=== PATIENT | female | born 1935 | race Caucasian/White ===

== ENCOUNTER 2017-01-17 09:27 | Emergency (ER) | payer MEDICARE ==
[2017-01-17] MEDS ORDERED: SODIUM CHLORIDE 0.9% 1,000 ML IV STA (10:05)
[2017-01-17] MEDS ORDERED: METOCLOPRAMIDE 5 MG/ML 2 ML VIAL IVP STA (10:14)
--- NOTE | 2017-01-17 10:17 | ED ---
General Adult HPI - General Chief complaint: Nausea/Vomiting/Diarrhea Stated complaint: Nausea/Vomiting Time Seen by Provider: 01/17/17 10:02 Source: EMS, RN notes reviewed Mode of arrival: EMS Limitations: no limitations - History of Present Illness Initial comments: Patient is 81-year-old female presents emergency room for evaluation. Patient states This morning she felt very dizzy. Patient states she felt like she is having a panic attack and began feeling very nauseous. Patient states she still having slight dizziness. Patient states she vomited when she got here. Patient states it and a little bit of abdominal discomfort from the nauseated feeling. Patient denies headache or changes in vision. Patient denies paresthesias. Patient denies diarrhea or constipation. Patient denies new foods. Patient denies recent travel outside the country. Patient denies chest pain or shortness of breath. Patient denies any cardiac history. - Related Data Home Medications Medication Instructions Recorded Confirmed Cholecalciferol [Vitamin D3] 1,000 unit PO DAILY 01/17/17 01/17/17 Ezetimibe [Zetia] 10 mg PO DAILY 01/17/17 01/17/17 Fenofibrate [Lofibra] 54 mg PO DAILY 01/17/17 01/17/17 Hydrochlorothiazide 25 mg PO DAILY 01/17/17 01/17/17 Levothyroxine Sodium [Synthroid] 112 mcg PO DAILY 01/17/17 01/17/17 Oxybutynin Xl [Ditropan Xl] 5 mg PO DAILY 01/17/17 01/17/17 Previous Rx's Medication Instructions Recorded LORazepam [Ativan] 1 mg PO BID PRN #8 tab 01/17/17 Ondansetron Odt [Zofran Odt] 4 mg PO Q8HR PRN #12 tab 01/17/17 Allergies Allergy/AdvReac Type Severity Reaction Status Date / Time midazolam [From Versed] Allergy Vomiting Verified 01/17/17 09:54 cortisone AdvReac Vomiting Verified 01/17/17 09:54 meperidine [From Demerol] AdvReac Vomiting Verified 01/17/17 09:54 Review of Systems ROS Statement: Those systems with pertinent positive or pertinent negative responses have been documented in the HPI. ROS Other: All systems not noted in ROS Statement are negative. Past Medical History Past Medical History: Thyroid Disorder History of Any Multi-Drug Resistant Organisms: None Reported Additional Past Surgical History / Comment(s): eye surgery Past Psychological History: No Psychological Hx Reported Smoking Status: Never smoker Past Alcohol Use History: None Reported Past Drug Use History: None Reported General Exam - General Exam Comments Initial Comments: Laying in exam room, no acute distress. Limitations: no limitations General appearance: alert, in no apparent distress Head exam: Present: atraumatic, normocephalic, normal inspection Eye exam: Present: normal appearance, PERRL, EOMI Pupils: Present: normal accommodation ENT exam: Present: normal exam, normal oropharynx, mucous membranes moist, TM's normal bilaterally, normal external ear exam Neck exam: Present: normal inspection, full ROM. Absent: tenderness, lymphadenopathy Respiratory exam: Present: normal lung sounds bilaterally. Absent: respiratory distress Cardiovascular Exam: Present: regular rate, normal rhythm, normal heart sounds GI/Abdominal exam: Present: soft, normal bowel sounds. Absent: distended, tenderness, guarding, rebound, rigid Extremities exam: Present: normal inspection Back exam: Present: normal inspection Neurological exam: Present: alert, oriented X3, CN II-XII intact, normal gait Psychiatric exam: Present: normal affect, normal mood Skin exam: Present: warm, dry, intact, normal color. Absent: rash Course Vital Signs 01/17/17 01/17/17 01/17/17 09:41 09:47 11:11 Temperature 98.0 F 97.6 F Pulse Rate 64 62 57 L Respiratory 18 16 20 Rate Blood Pressure 161/74 161/74 145/69 O2 Sat by Pulse 97 91 L 98 Oximetry 01/17/17 01/17/17 01/17/17 11:52 12:14 13:20 Temperature 97.0 F L 96.9 F L Pulse Rate 56 L 64 65 Respiratory 16 16 16 Rate Blood Pressure 169/78 168/74 150/70 O2 Sat by Pulse 97 97 96 Oximetry EKG Findings - EKG Comments: EKG Findings:: Normal sinus rhythm, ventricular rate 63 bpm, TN interval 150 ms , QRS duration 78 ms, QT/QTc 428/437 ms Medical Decision Making - Medical Decision Making Patient is 81-year-old female presents to the emergency room for evaluation of dizziness and nausea. Patient states symptoms have improved since being here. Labs reviewed. No concerning labs noted. patient's episode this morning was likely from anxiety. Offered send patient home with Ativan and Berkley. Case discussed Dr. Correa. Patient states she would like to be discharged home. Advised patient to follow-up with her primary care provider. Return parameters discussed. - Lab Data Result diagrams: 01/17/17 09:45 01/17/17 09:45 Lab Results 01/17/17 01/17/17 01/17/17 Range/Units 09:45 09:45 09:45 WBC 4.8 (3.8-10.6) k/uL RBC 4.95 (3.80-5.40) m/uL Hgb 15.0 (11.4-16.0) gm/dL Hct 46.6 H (34.0-46.0) % MCV 94.1 (80.0-100.0) fL MCH 30.4 (25.0-35.0) pg MCHC 32.3 (31.0-37.0) g/dL RDW 13.6 (11.5-15.5) % Plt Count 234 (150-450) k/uL Neutrophils % 52 % Lymphocytes % 37 % Monocytes % 6 % Eosinophils % 3 % Basophils % 1 % Neutrophils # 2.5 (1.3-7.7) k/uL Lymphocytes # 1.8 (1.0-4.8) k/uL Monocytes # 0.3 (0-1.0) k/uL Eosinophils # 0.2 (0-0.7) k/uL Basophils # 0.0 (0-0.2) k/uL PT (9.0-12.0) sec INR (<1.1) APTT (22.0-30.0) sec Sodium 142 (137-145) mmol/L Potassium 3.9 (3.5-5.1) mmol/L Chloride 106 (98-107) mmol/L Carbon Dioxide 26 (22-30) mmol/L Anion Gap 10 mmol/L BUN 22 H (7-17) mg/dL Creatinine 0.79 (0.52-1.04) mg/dL Est GFR (MDRD) Af Amer >60 (>60 ml/min/1.73 sqM) Est GFR (MDRD) Non-Af >60 (>60 ml/min/1.73 sqM) Glucose 118 H (74-99) mg/dL Calcium 9.4 (8.4-10.2) mg/dL Magnesium 1.9 (1.6-2.3) mg/dL Total Bilirubin 0.8 (0.2-1.3) mg/dL AST 32 (14-36) U/L ALT 36 (9-52) U/L Alkaline Phosphatase 51 (38-126) U/L Total Creatine Kinase 158 H (30-135) U/L CK-MB (CK-2) 3.2 H* (0.0-2.4) ng/mL CK-MB (CK-2) Rel Index 2.0 Troponin I <0.012 (0.000-0.034) ng/mL Total Protein 7.1 (6.3-8.2) g/dL Albumin 4.3 (3.5-5.0) g/dL Amylase 63 (30-110) U/L Lipase 126 (23-300) U/L Urine Color Urine Appearance (Clear) Urine pH (5.0-8.0) Ur Specific [place] (1.001-1.035) Urine Protein (Negative) Urine Glucose (UA) (Negative) Urine Ketones (Negative) Urine Blood (Negative) Urine Nitrite (Negative) Urine Bilirubin (Negative) Urine Urobilinogen (<2.0) mg/dL Ur Leukocyte Esterase (Negative) Urine RBC (0-5) /hpf Urine WBC (0-5) /hpf Ur Squamous Epith Cells (0-4) /hpf Hyaline Casts (0-2) /lpf Urine Mucus (None) /hpf 01/17/17 01/17/17 Range/Units 09:45 12:10 WBC (3.8-10.6) k/uL RBC (3.80-5.40) m/uL Hgb (11.4-16.0) gm/dL Hct (34.0-46.0) % MCV (80.0-100.0) fL MCH (25.0-35.0) pg MCHC (31.0-37.0) g/dL RDW (11.5-15.5) % Plt Count (150-450) k/uL Neutrophils % % Lymphocytes % % Monocytes % % Eosinophils % % Basophils % % Neutrophils # (1.3-7.7) k/uL Lymphocytes # (1.0-4.8) k/uL Monocytes # (0-1.0) k/uL Eosinophils # (0-0.7) k/uL Basophils # (0-0.2) k/uL PT 10.5 (9.0-12.0) sec INR 1.0 (<1.1) APTT 19.1 L (22.0-30.0) sec Sodium (137-145) mmol/L Potassium (3.5-5.1) mmol/L Chloride (98-107) mmol/L Carbon Dioxide (22-30) mmol/L Anion Gap mmol/L BUN (7-17) mg/dL Creatinine (0.52-1.04) mg/dL Est GFR (MDRD) Af Amer (>60 ml/min/1.73 sqM) Est GFR (MDRD) Non-Af (>60 ml/min/1.73 sqM) Glucose (74-99) mg/dL Calcium (8.4-10.2) mg/dL Magnesium (1.6-2.3) mg/dL Total Bilirubin (0.2-1.3) mg/dL AST (14-36) U/L ALT (9-52) U/L Alkaline Phosphatase (38-126) U/L Total Creatine Kinase (30-135) U/L CK-MB (CK-2) (0.0-2.4) ng/mL CK-MB (CK-2) Rel Index Troponin I (0.000-0.034) ng/mL Total Protein (6.3-8.2) g/dL Albumin (3.5-5.0) g/dL Amylase (30-110) U/L Lipase (23-300) U/L Urine Color Yellow Urine Appearance Cloudy H (Clear) Urine pH 8.5 H (5.0-8.0) Ur Specific [place] 1.016 (1.001-1.035) Urine Protein Trace H (Negative) Urine Glucose (UA) Negative (Negative) Urine Ketones Negative (Negative) Urine Blood Negative (Negative) Urine Nitrite Negative (Negative) Urine Bilirubin Negative (Negative) Urine Urobilinogen <2.0 (<2.0) mg/dL Ur Leukocyte Esterase Negative (Negative) Urine RBC 3 (0-5) /hpf Urine WBC 4 (0-5) /hpf Ur Squamous Epith Cells 1 (0-4) /hpf Hyaline Casts 3 H (0-2) /lpf Urine Mucus Rare H (None) /hpf - Radiology Data Radiology results: report reviewed, image reviewed Disposition Clinical Impression: Nausea and vomiting Disposition: HOME SELF-CARE Condition: Good Instructions: Acute Nausea and Vomiting (ED), Anxiety (ED) Additional Instructions: Take Zofran as needed for nausea. Take Ativan as needed for anxiety symptoms. Please follow up with primary care provider in 1-2 days. If any new symptom arises or symptoms worsen, return to ER as soon as possible. Prescriptions: Ondansetron Odt [Zofran Odt] 4 mg PO Q8HR PRN #12 tab PRN Reason: Nausea LORazepam [Ativan] 1 mg PO BID PRN #8 tab PRN Reason: Anxiety Referrals: Jose Link MD [Primary Care Provider] - 1-2 days Time of Disposition: 12:29
[2017-01-17 10:33] LABS: Basophils % (A) 1 %; CH 31.6; CHCM 33.8; Eosinophils # (A) 0.2 k/uL (0-0.7); Eosinophils % (A) 3 %; HCT 46.6 % (34.0-46.0); HDW 2.72; Luc # (Auto) 0.09; Luc % (Auto) 2; Lymphocytes # (A) 1.8 k/uL (1.0-4.8); Lymphocytes % (A) 37 %; MCH 30.4 pg (25.0-35.0); MCHC 32.3 g/dL (31.0-37.0); MCV 94.1 fL (80.0-100.0); Mean Platelet Volume 7.6; Monocytes # (A) 0.3 k/uL (0-1.0); Monocytes % (A) 6 %; Neutrophils # (A) 2.5 k/uL (1.3-7.7); Neutrophils % (A) 52 %; Prothrombin Time 10.5 sec (9.0-12.0); RBC 4.95 m/uL (3.80-5.40); RDW 13.6 % (11.5-15.5); WBC 4.8 k/uL (3.8-10.6); WBC (Perox) 4.61
[2017-01-17 10:45] LABS: Partial Thromboplastin Time 19.1 sec (22.0-30.0)
[2017-01-17 10:46] LABS: ALT 36 U/L (9-52); AST 32 U/L (14-36); Alkaline Phosphatase 51 U/L (38-126); Amylase 63 U/L (30-110); Anion Gap 10 mmol/L; Blood Urea Nitrogen 22 mg/dL (7-17); Calcium 9.4 mg/dL (8.4-10.2); Carbon Dioxide 26 mmol/L (22-30); Chloride 106 mmol/L (98-107); Glucose 118 mg/dL (74-99); Magnesium 1.9 mg/dL (1.6-2.3); Non-African American GFR(MDRD) >60 (>60 ml/min/1.73 sqM); Potassium 3.9 mmol/L (3.5-5.1); Sodium 142 mmol/L (137-145); Total Bilirubin 0.8 mg/dL (0.2-1.3); Total Protein 7.1 g/dL (6.3-8.2)
--- NOTE | 2017-01-17 11:03 | XR ---
EXAMINATION TYPE: XR chest 2V DATE OF EXAM: 01/17/2017 COMPARISON: NONE INDICATION: Chest pain nausea vomiting TECHNIQUE: Frontal and lateral views of the chest are obtained. FINDINGS: The heart size is normal. The pulmonary vasculature is normal. The lungs are clear. IMPRESSION: 1. No acute pulmonary process.
[2017-01-17 11:06] LABS: Creatine Kinase 158 U/L (30-135)
[2017-01-17 11:18] LABS: Troponin I <0.012 ng/mL (0.000-0.034)
[2017-01-17 11:32] LABS: Creatine Kinase MB 3.2 ng/mL (0.0-2.4)
[2017-01-17 11:57] VITALS: RESP 16
[2017-01-17 12:55] LABS: Appearance,Urine Cloudy (Clear); Bilirubin,Urine Negative (Negative); Glucose,Urine (UA) Negative (Negative); Ketones,Urine Negative (Negative); Leukocyte Esterase,Urine Negative (Negative); Mucus,Urine Rare /hpf; Nitrite,Urine Negative (Negative); PH, Urine 8.5 (5.0-8.0); Particle Count 5654; Protein,Urine Trace (Negative); RBC,Urine 3 /hpf (0-5); Specific Gravity,Urine 1.016 (1.001-1.035); Squamous Epithelial Cell,Urine 1 /hpf (0-4); UA Billing (MACRO vs. MICRO) MICRO; Urobilinogen,Urine <2.0 mg/dL (<2.0); WBC,Urine 4 /hpf (0-5)
[2017-01-17 13:21] VITALS: BP 150/70; PULSE 65; TEMP 96.9
== END 2017-01-17 13:25 | disposition home or self-care (01) ==
LOC: EC 09:27
DX: R11.2 Nausea with vomiting, unspecified (principal); R19.7 Diarrhea, unspecified; R42 Dizziness and giddiness; E07.9 Disorder of thyroid, unspecified; Z88.5 Allergy status to narcotic agent; Z88.8 Allergy status to other drugs, medicaments and biological substances; Z79.899 Other long term (current) drug therapy
CPT/HCPCS: 99285; 96374; 96361; 36415; 93005; 80053; 82150; 82550; 82553; 83690; 83735; 84484; 85025; 85610; 85730; 81001; 71020; J2765

== ENCOUNTER → 2020-05-27 | Outpatient (CLI) | payer MEDICARE | END | disposition home or self-care (01) | LOC: LABWHC1 14:30 | PROVIDERS: ATTEND Family Medicine | DX: Z20.828 Contact with and (suspected) exposure to other viral communicable diseases (principal) | CPT/HCPCS: U0003; C9803 ==

== ENCOUNTER 2020-12-28 17:06 | Emergency (ER) | payer MEDICARE ==
[2020-12-28 17:13] VITALS: TEMP 97.8
[2020-12-28 18:52] LABS: Basophils % (A) 1 %; Eosinophils # (A) 0.3 k/uL (0-0.7); Eosinophils % (A) 5 %; HCT 45.8 % (34.0-46.0); HGB 14.8 gm/dL (11.4-16.0); Lymphocytes # (A) 1.8 k/uL (1.0-4.8); Lymphocytes % (A) 31 %; MCH 29.4 pg (25.0-35.0); MCHC 32.3 g/dL (31.0-37.0); MCV 91.1 fL (80.0-100.0); Mean Platelet Volume 7.5; Monocytes # (A) 0.4 k/uL (0-1.0); Monocytes % (A) 6 %; Neutrophils # (A) 3.1 k/uL (1.3-7.7); Neutrophils % (A) 55 %; Platelet Count 237 k/uL (150-450); RBC 5.03 m/uL (3.80-5.40); RDW 13.3 % (11.5-15.5); WBC 5.6 k/uL (3.8-10.6)
[2020-12-28 19:00] LABS: ALT 19 U/L (4-34); AST 30 U/L (14-36); African American GFR (CKD) >90 (>60 ml/min/1.73 sqM); Albumin 4.3 g/dL (3.5-5.0); Alkaline Phosphatase 45 U/L (38-126); Anion Gap 7 mmol/L; Blood Urea Nitrogen 20 mg/dL (7-17); Calcium 9.9 mg/dL (8.4-10.2); Carbon Dioxide 32 mmol/L (22-30); Chloride 104 mmol/L (98-107); Glucose 85 mg/dL (74-99); Lipase 87 U/L (23-300); Non-African American GFR(CKD) 84 (>60 ml/min/1.73 sqM); Potassium 3.6 mmol/L (3.5-5.1); Sodium 143 mmol/L (137-145); Total Bilirubin 0.7 mg/dL (0.2-1.3); Total Protein 6.9 g/dL (6.3-8.2)
[2020-12-28] MEDS ORDERED: ACETAMINOPHEN TAB 325 MG TAB PO STA (19:07)
[2020-12-28] MEDS ORDERED: ONDANSETRON 4 MG/2 ML VIAL IVP STA (19:07)
--- NOTE | 2020-12-28 19:07 | ED ---
General Adult HPI - General Chief complaint: Recheck/Abnormal Lab/Rx Stated complaint: ABN EKG Time Seen by Provider: 12/28/20 17:51 Source: patient Mode of arrival: wheelchair Limitations: no limitations - History of Present Illness Initial comments: Is an 85-year-old female to history of hypothyroidism who presents emergency department from Dr. Link's office for nausea and headache. The patient states that she woke up this morning and was experiencing a headache and some nausea. She describes the headache is bifrontal and nonradiating area she states that it is a 9 out of 10 because it impairs her ability to do anything. States that it does seem to be improved with laying down and worse with activity. She states it was not sudden onset. Was not severe nature at the time. She denies any associated symptoms with this including vision changes, photophobia, phonophobia, focal weakness in the arms or legs. No neck pain. No fevers or chills. The patient states that she's also been expressing some nausea that also seems to be worse with activity and she states that she does not have any pain associated with this. No diarrhea. No chest pain or shortness of breath. Currently the patient has also been feeling very weak and tired. She slept 3 hours this afternoon. Just having some generalized malaise. She went to Dr. Sepulveda office who did an EKG and told her that it may be something cardiac and recommended she come emergency department. No other Complaints. - Related Data Home Medications Medication Instructions Recorded Confirmed Ezetimibe [Zetia] 10 mg PO DAILY 01/17/17 12/28/20 Fenofibrate [Lofibra] 54 mg PO DAILY 01/17/17 12/28/20 hydroCHLOROthiazide 25 mg PO DAILY 01/17/17 12/28/20 Levothyroxine Sodium 88 mcg PO DAILY 12/28/20 12/28/20 Allergies Allergy/AdvReac Type Severity Reaction Status Date / Time midazolam [From Versed] Allergy Vomiting Verified 12/28/20 19:05 cortisone AdvReac Vomiting Verified 12/28/20 19:05 meperidine [From Demerol] AdvReac Vomiting Verified 12/28/20 19:05 Review of Systems ROS Statement: Those systems with pertinent positive or pertinent negative responses have been documented in the HPI. ROS Other: All systems not noted in ROS Statement are negative. Past Medical History Past Medical History: Thyroid Disorder History of Any Multi-Drug Resistant Organisms: None Reported Additional Past Surgical History / Comment(s): eye surgery Past Psychological History: No Psychological Hx Reported Smoking Status: Never smoker Past Alcohol Use History: None Reported Past Drug Use History: None Reported General Exam - General Exam Comments Initial Comments: Constitutional: Awake alert Appears comfortable Head: Normocephalic atraumatic Eyes: no conjunctival injection No scleral icterus EOMI, pupils are 3 mm and reactive bilaterally Neck: No JVD Supple no tenderness Heart: Regular rate rhythm normal S1-S2 no murmurs Lungs: Clear to auscultation bilaterally No wheezing No rales Abdomen: Soft nondistended nontender Extremities: Non edematous DP pulses intact Radial pulses intact Neuro: A&Ox3, crowner 2 through 12 are grossly intact, 5 out of 5 strength in upper and lower extremities bilaterally, sensation intact to light touch in all extremities, normal finger nose and heel to lacy testing. No focal neurologic deficits Psych: Appropriate mood and affect Limitations: no limitations Course Vital Signs 12/28/20 17:10 Temperature 97.8 F Pulse Rate 66 Respiratory 16 Rate Blood Pressure 155/78 O2 Sat by Pulse 99 Oximetry Medical Decision Making - Medical Decision Making Is an 85-year-old female who presents emergency department for headache, nausea, and generalized malaise and fatigue that started this morning. She was seen at the primary doctor's office who advised her to come emergency department for evaluation. The patient had very minor headache on arrival. She does describe it as sudden severe and thunderclap. She did not appear uncomfortable at all on my physical examination. The patient had no focal neurologic findings on examination. She had good coordination. I was able to get the patient up and she ambulated throughout the room. She did complain of a little bit of lightheadedness upon standing however it resolved shortly after. Patient had a computed tomography scan of her head which was unremarkable for any emergent findings. Troponin was negative. EKG was normal. At this point I feel the patient is okay to go home. I advised her to monitor her symptoms and if she has any worsening or changing symptoms she is to return to the emergency department for reevaluation. Otherwise she needs to follow-up with Dr. Link in the next 1-2 days. It's speak with Dr. Link's nurse practitioner who was the one who sent the patient and he agreed with plan of care at this time. - Lab Data Result diagrams: 12/28/20 18:42 12/28/20 18:42 Lab Results 12/28/20 12/28/20 12/28/20 Range/Units 18:42 18:42 18:42 WBC 5.6 (3.8-10.6) k/uL RBC 5.03 (3.80-5.40) m/uL Hgb 14.8 (11.4-16.0) gm/dL Hct 45.8 (34.0-46.0) % MCV 91.1 (80.0-100.0) fL MCH 29.4 (25.0-35.0) pg MCHC 32.3 (31.0-37.0) g/dL RDW 13.3 (11.5-15.5) % Plt Count 237 (150-450) k/uL MPV 7.5 Neutrophils % 55 % Lymphocytes % 31 % Monocytes % 6 % Eosinophils % 5 % Basophils % 1 % Neutrophils # 3.1 (1.3-7.7) k/uL Lymphocytes # 1.8 (1.0-4.8) k/uL Monocytes # 0.4 (0-1.0) k/uL Eosinophils # 0.3 (0-0.7) k/uL Basophils # 0.0 (0-0.2) k/uL PT (9.0-12.0) sec INR (<1.2) APTT (22.0-30.0) sec Sodium 143 (137-145) mmol/L Potassium 3.6 (3.5-5.1) mmol/L Chloride 104 (98-107) mmol/L Carbon Dioxide 32 H (22-30) mmol/L Anion Gap 7 mmol/L BUN 20 H (7-17) mg/dL Creatinine 0.61 (0.52-1.04) mg/dL Est GFR (CKD-EPI)AfAm >90 (>60 ml/min/1.73 sqM) Est GFR (CKD-EPI)NonAf 84 (>60 ml/min/1.73 sqM) Glucose 85 (74-99) mg/dL Calcium 9.9 (8.4-10.2) mg/dL Magnesium 2.0 (1.6-2.3) mg/dL Total Bilirubin 0.7 (0.2-1.3) mg/dL AST 30 (14-36) U/L ALT 19 (4-34) U/L Alkaline Phosphatase 45 (38-126) U/L Troponin I <0.012 (0.000-0.034) ng/mL Total Protein 6.9 (6.3-8.2) g/dL Albumin 4.3 (3.5-5.0) g/dL Lipase 87 (23-300) U/L 12/28/20 Range/Units 19:42 WBC (3.8-10.6) k/uL RBC (3.80-5.40) m/uL Hgb (11.4-16.0) gm/dL Hct (34.0-46.0) % MCV (80.0-100.0) fL MCH (25.0-35.0) pg MCHC (31.0-37.0) g/dL RDW (11.5-15.5) % Plt Count (150-450) k/uL MPV Neutrophils % % Lymphocytes % % Monocytes % % Eosinophils % % Basophils % % Neutrophils # (1.3-7.7) k/uL Lymphocytes # (1.0-4.8) k/uL Monocytes # (0-1.0) k/uL Eosinophils # (0-0.7) k/uL Basophils # (0-0.2) k/uL PT 10.6 (9.0-12.0) sec INR 1.0 (<1.2) APTT 23.4 (22.0-30.0) sec Sodium (137-145) mmol/L Potassium (3.5-5.1) mmol/L Chloride (98-107) mmol/L Carbon Dioxide (22-30) mmol/L Anion Gap mmol/L BUN (7-17) mg/dL Creatinine (0.52-1.04) mg/dL Est GFR (CKD-EPI)AfAm (>60 ml/min/1.73 sqM) Est GFR (CKD-EPI)NonAf (>60 ml/min/1.73 sqM) Glucose (74-99) mg/dL Calcium (8.4-10.2) mg/dL Magnesium (1.6-2.3) mg/dL Total Bilirubin (0.2-1.3) mg/dL AST (14-36) U/L ALT (4-34) U/L Alkaline Phosphatase (38-126) U/L Troponin I (0.000-0.034) ng/mL Total Protein (6.3-8.2) g/dL Albumin (3.5-5.0) g/dL Lipase (23-300) U/L Disposition Clinical Impression: Headache, Nausea Disposition: HOME SELF-CARE Condition: Stable Instructions (If sedation given, give patient instructions): Acute Headache (ED) Is patient prescribed a controlled substance at d/c from ED?: No Referrals: Jose Link MD [Primary Care Provider] - 1-2 days
--- NOTE | 2020-12-28 19:42 | CT ---
EXAMINATION TYPE: CT brain wo con DATE OF EXAM: 12/28/2020 COMPARISON: None INDICATION: headache, abnormal EKG DLP: 1078.4 mGycm, Automated exposure control for dose reduction was used. CONTRAST: None CT of the brain is performed utilizing 3 mm thick sections through the posterior fossa and 3 mm thick sections through the remaining calvarium. Study is performed within 24 hours of arrival to the hosp [facility]. No abnormal hyperdensity is present to suggest an acute intracranial hemorrhage. No mass lesion is evident. No acute infarcts are evident. Minimal periventricular white matter changes may be present. Ventricles and sulci are mildly prominent for the patient age. Paranasal sinuses and mastoid air cells within the [id number] are clear. IMPRESSIONS: 1. Atrophy with chronic appearing periventricular white matter ischemic-type changes. 2. No acute intracranial process is evident
[2020-12-28 20:00] LABS: Partial Thromboplastin Time 23.4 sec (22.0-30.0); Prothrombin Time 10.6 sec (9.0-12.0)
[2020-12-28 20:52] VITALS: BP 148/84; PULSE 62; RESP 18
== END 2020-12-28 20:52 | disposition home or self-care (01) ==
LOC: EC 17:06
DX: R51.9 Headache, unspecified (principal); R11.0 Nausea; E07.9 Disorder of thyroid, unspecified; Z88.4 Allergy status to anesthetic agent; Z88.2 Allergy status to sulfonamides; Z88.6 Allergy status to analgesic agent; Z79.890 Hormone replacement therapy
CPT/HCPCS: 96374; 99285 ×2; 36415; 93005; 80053; 83690; 83735; 84484; 85025; 85610; 85730; 70450; J2405

== ENCOUNTER 2021-12-22 17:31 | Observation (INO) | payer MEDICARE ==
[2021-12-22] MEDS ORDERED: SODIUM CHLORIDE 0.9% 1,000 ML IV STA ×2 (17:57→18:59)
[2021-12-22] MEDS ORDERED: PROCHLORPERAZINE INJ 10 MG/2 ML VIAL IVP STA (17:57)
[2021-12-22] MEDS ORDERED: SODIUM CHLORIDE 0.9% 500 ML 500 ML IV STA (17:57)
--- NOTE | 2021-12-22 18:02 | ED ---
General Adult HPI - General Chief complaint: Abdominal Pain Stated complaint: Dizziness Time Seen by Provider: 12/22/21 17:31 Source: patient, family, EMS, RN notes reviewed Mode of arrival: EMS Limitations: no limitations - History of Present Illness Initial comments: 86-year-old female history of hypertension who apparently was recently started on Aricept who presents by EMS today after being found on the bathroom floor. She states she became profoundly weak and nauseated Farhat for 20 to 4:30 PM tonight. No chest pain palpitations fevers chills or sweats she felt dizzy lightheaded. No diarrhea reported took her dose of Aricept this morning her states a 4 PM she was doing well when he came back on her and the floor she states she just got weak and went down to the floor she denies any injury. She was given IV Zofran and route by paramedics she still nauseated and feels like she has to vomit she also today complains some tingling to her legs and toes she was noted to be hyperventilating per paramedics. - Related Data Home Medications Medication Instructions Recorded Confirmed Ezetimibe [Zetia] 10 mg PO DAILY 01/17/17 12/28/20 Fenofibrate [Lofibra] 54 mg PO DAILY 01/17/17 12/28/20 hydroCHLOROthiazide 25 mg PO DAILY 01/17/17 12/28/20 Levothyroxine Sodium 88 mcg PO DAILY 12/28/20 12/28/20 Allergies Allergy/AdvReac Type Severity Reaction Status Date / Time midazolam [From Versed] Allergy Vomiting Verified 12/28/20 19:05 cortisone AdvReac Vomiting Verified 12/28/20 19:05 meperidine [From Demerol] AdvReac Vomiting Verified 12/28/20 19:05 Review of Systems ROS Statement: Those systems with pertinent positive or pertinent negative responses have been documented in the HPI. ROS Other: All systems not noted in ROS Statement are negative. Past Medical History Past Medical History: Thyroid Disorder Additional Past Medical History / Comment(s): Pt takes hydrochlorothizide and ezetimibe but unsure why History of Any Multi-Drug Resistant Organisms: None Reported Additional Past Surgical History / Comment(s): eye surgery Past Psychological History: No Psychological Hx Reported Smoking Status: Never smoker Past Alcohol Use History: None Reported Past Drug Use History: None Reported General Exam - General Exam Comments Initial Comments: This is a well up well-nourished awake alert oriented 3 female Limitations: no limitations General appearance: alert, anxious Head exam: Present: atraumatic, normocephalic, normal inspection Eye exam: Present: normal appearance, PERRL, EOMI. Absent: scleral icterus, conjunctival injection, periorbital swelling ENT exam: Present: mucous membranes dry Neck exam: Present: normal inspection, full ROM, other (No strider activity or bruits). Absent: tenderness, meningismus, lymphadenopathy Respiratory exam: Present: normal lung sounds bilaterally. Absent: respiratory distress, wheezes, rales, rhonchi, stridor Cardiovascular Exam: Present: regular rate, normal rhythm, normal heart sounds. Absent: systolic murmur, diastolic murmur, rubs, gallop, clicks GI/Abdominal exam: Present: soft, normal bowel sounds. Absent: distended, tenderness, guarding, rebound, rigid, bruit, pulsatile mass Extremities exam: Present: normal inspection, full ROM, normal capillary refill. Absent: tenderness, pedal edema, joint swelling, calf tenderness Back exam: Present: normal inspection Neurological exam: Present: alert, oriented X3, CN II-XII intact Psychiatric exam: Present: normal affect, normal mood Skin exam: Present: warm, dry, intact, normal color. Absent: rash Course Vital Signs 12/22/21 17:37 Temperature 98.2 F Pulse Rate 75 Respiratory 17 Rate Blood Pressure 130/63 O2 Sat by Pulse 100 Oximetry - Reevaluation(s) Reevaluation #1: 12/22/21 19:23 Evaluation patient multiple occasions she still remains nauseated in spite of medications and IV fluids patient does demonstrate clinical evidence of dehydration she also has elevated CPK she does admit to doing a lot of yard work recently. The patient will be admitted for IV hydration and further treatment. EKG Findings - EKG Results: EKG: interpreted by VANESSA, sinus rhythm (EKG sinus rhythm of 64. Interval 139 QRS duration 98 QT since QTC 443/452 sinus arrhythmia noted wereEKG) Medical Decision Making - Medical Decision Making Did discuss findings with patient family patient persists with nausea and will be admitted for dehydration and intractable nausea.. Case discussed with Dr. Carson - Lab Data Result diagrams: 12/22/21 18:08 12/22/21 18:08 Lab Results 12/22/21 12/22/21 12/22/21 Range/Units 18:08 18:08 18:08 WBC 6.1 (3.8-10.6) k/uL RBC 4.55 (3.80-5.40) m/uL Hgb 13.9 (11.4-16.0) gm/dL Hct 41.9 (34.0-46.0) % MCV 92.0 (80.0-100.0) fL MCH 30.6 (25.0-35.0) pg MCHC 33.3 (31.0-37.0) g/dL RDW 13.1 (11.5-15.5) % Plt Count 272 (150-450) k/uL MPV 7.9 Neutrophils % 49 % Lymphocytes % 39 % Monocytes % 6 % Eosinophils % 3 % Basophils % 0 % Neutrophils # 3.0 (1.3-7.7) k/uL Lymphocytes # 2.4 (1.0-4.8) k/uL Monocytes # 0.4 (0-1.0) k/uL Eosinophils # 0.2 (0-0.7) k/uL Basophils # 0.0 (0-0.2) k/uL D-Dimer 0.55 (<0.60) mg/L FEU Sodium 138 (137-145) mmol/L Potassium 3.5 (3.5-5.1) mmol/L Chloride 104 (98-107) mmol/L Carbon Dioxide 24 (22-30) mmol/L Anion Gap 10 mmol/L BUN 21 H (7-17) mg/dL Creatinine 0.74 (0.52-1.04) mg/dL Est GFR (CKD-EPI)AfAm 87 (>60 ml/min/1.73 sqM) Est GFR (CKD-EPI)NonAf 75 (>60 ml/min/1.73 sqM) Glucose 112 H (74-99) mg/dL Calcium 9.7 (8.4-10.2) mg/dL Magnesium 1.9 (1.6-2.3) mg/dL Total Bilirubin 0.5 (0.2-1.3) mg/dL AST 34 (14-36) U/L ALT 20 (4-34) U/L Alkaline Phosphatase 51 (38-126) U/L Creatine Kinase 402 H (30-135) U/L Total Protein 7.0 (6.3-8.2) g/dL Albumin 4.3 (3.5-5.0) g/dL TSH 2.320 (0.465-4.680) mIU/L - Radiology Data Radiology results: report reviewed (Imaging reviewed as well as report no acute findings.), image reviewed Disposition Clinical Impression: Intractable vomiting, Dehydration, Elevated CPK Disposition: ADMITTED IP TO THIS [facility] Condition: Fair Decision Date: 12/22/21 Decision Time: 19:25
[2021-12-22 18:44] LABS: ALT 20 U/L (4-34); AST 34 U/L (14-36); African American GFR (CKD) 87 (>60 ml/min/1.73 sqM); Albumin 4.3 g/dL (3.5-5.0); Alkaline Phosphatase 51 U/L (38-126); Anion Gap 10 mmol/L; Blood Urea Nitrogen 21 mg/dL (7-17); Calcium 9.7 mg/dL (8.4-10.2); Carbon Dioxide 24 mmol/L (22-30); Chloride 104 mmol/L (98-107); Creatine Kinase 402 U/L (30-135); Glucose 112 mg/dL (74-99); Magnesium 1.9 mg/dL (1.6-2.3); Non-African American GFR(CKD) 75 (>60 ml/min/1.73 sqM); Potassium 3.5 mmol/L (3.5-5.1); Sodium 138 mmol/L (137-145); Total Bilirubin 0.5 mg/dL (0.2-1.3)
[2021-12-22 19:00] LABS: Basophils % (A) 0 %; Eosinophils # (A) 0.2 k/uL (0-0.7); Eosinophils % (A) 3 %; HCT 41.9 % (34.0-46.0); HGB 13.9 gm/dL (11.4-16.0); Lymphocytes # (A) 2.4 k/uL (1.0-4.8); Lymphocytes % (A) 39 %; MCH 30.6 pg (25.0-35.0); MCHC 33.3 g/dL (31.0-37.0); Mean Platelet Volume 7.9; Monocytes # (A) 0.4 k/uL (0-1.0); Monocytes % (A) 6 %; Neutrophils % (A) 49 %; Platelet Count 272 k/uL (150-450); RBC 4.55 m/uL (3.80-5.40); RDW 13.1 % (11.5-15.5); WBC 6.1 k/uL (3.8-10.6)
--- NOTE | 2021-12-22 19:06 | XR ---
EXAMINATION TYPE: XR chest 2V DATE OF EXAM: 12/22/2021 7:01 PM COMPARISON: Chest radiographs from 01/17/2017. TECHNIQUE: XR chest 2V Frontal and lateral views of the chest. CLINICAL INDICATION:Female, 86 years old with history of Near syncope; FINDINGS: Lungs/Pleura: There is no evidence of pleural effusion, focal consolidation, or pneumothorax. Pulmonary vascularity: Unremarkable. Heart/mediastinum: Cardiomediastinal silhouette is prominent in size. Musculoskeletal: No acute osseous pathology. IMPRESSION: No acute cardiopulmonary disease/process.
[2021-12-22] MEDS ORDERED: NALOXONE 0.4 MG/ML 1 ML VIAL IV PRN (19:25)
[2021-12-22] MEDS ORDERED: ACETAMINOPHEN TAB 325 MG TAB PO PRN (19:25)
[2021-12-22] MEDS ORDERED: PROCHLORPERAZINE INJ 10 MG/2 ML VIAL IVP PRN (19:27)
[2021-12-22 22:53] LABS: Amorphous Sediment,Urine Few /hpf; Appearance,Urine Cloudy (Clear); Bacteria,Urine Rare /hpf; Bilirubin,Urine Negative (Negative); Blood,Urine Negative (Negative); Color,Urine Yellow; Glucose,Urine (UA) Negative (Negative); Ketones,Urine Negative (Negative); Leukocyte Esterase,Urine Moderate (Negative); Mucus,Urine Rare /hpf; Nitrite,Urine Positive (Negative); Protein,Urine Negative (Negative); RBC,Urine 2 /hpf (0-5); Specific Gravity,Urine 1.019 (1.001-1.035); Squamous Epithelial Cell,Urine <1 /hpf (0-4); Urobilinogen,Urine <2.0 mg/dL (<2.0); WBC,Urine 12 /hpf (0-5)
[2021-12-23] MEDS: LEVOTHYROXINE 88 MCG TAB PO SCH (06:07)
[2021-12-23] MEDS: EZETIMIBE 10 MG TAB PO SCH (09:50)
[2021-12-23] MEDS: FENOFIBRATE 54 MG TAB PO SCH (09:50)
[2021-12-23] MEDS: hydroCHLOROthiazide 25 MG TAB PO SCH (09:50)
[2021-12-23] MEDS: SODIUM CHLORIDE 0.9% 1,000 ML IV SCH (18:28)
[2021-12-24] MEDS: LEVOTHYROXINE 88 MCG TAB PO SCH (05:22)
[2021-12-24 08:47] VITALS: RESP 18
[2021-12-24] MEDS: hydroCHLOROthiazide 25 MG TAB PO SCH (09:03)
[2021-12-24] MEDS: DONEPEZIL 5 MG TAB PO SCH (09:03)
[2021-12-24] MEDS: EZETIMIBE 10 MG TAB PO SCH (09:04)
[2021-12-24] MEDS: FENOFIBRATE 54 MG TAB PO SCH (09:04)
[2021-12-24] MEDS: SODIUM CHLORIDE 0.9% 1,000 ML IV SCH ×2 (13:44→20:41)
--- NOTE | 2021-12-24 19:25 | P.HPIM ---
History of Present Illness H&P Date: 12/23/21 Chief Complaint: Abdominal pain/dizziness 86-year-old female history of hypertension who apparently was recently started on Aricept who presents by EMS today after being found on the bathroom floor. She states she became profoundly weak and nauseated Farhat for 20 to 4:30 PM tonight. No chest pain palpitations fevers chills or sweats she felt dizzy lightheaded. No diarrhea reported took her dose of Aricept this morning her states a 4 PM she was doing well when he came back on her and the floor she states she just got weak and went down to the floor she denies any injury. She was given IV Zofran and route by paramedics she still nauseated and feels like she has to vomit she also today complains some tingling to her legs and toes she was noted to be hyperventilating per paramedics. Laboratory review shows WBC of 6.1, hemoglobin 13.9 and platelet count of 272, sodium 138, potassium 3.5, BUN/creatinine of 21/0.74 and blood glucose of 112; CK of 402 EKG: interpreted by VANESSA, sinus rhythm (EKG sinus rhythm of 64. Interval 139 QRS duration 98 QT since QTC 443/452 sinus arrhythmia Review of Systems REVIEW OF SYSTEMS: CONSTITUTIONAL: No fever, no malaise, no fatigue. HEENT: No recent visual problems or hearing problems. Denied any sore throat. CARDIOVASCULAR: No chest pain, orthopnea, PND, no palpitations, no syncope. PULMONARY: No shortness of breath, no cough, no hemoptysis. GASTROINTESTINAL: No diarrhea, no nausea, no vomiting, no abdominal pain. NEUROLOGICAL: No headaches, no weakness, no numbness. HEMATOLOGICAL: Denies any bleeding or petechiae. GENITOURINARY: Denies any burning micturition, frequency, or urgency. MUSCULOSKELETAL/RHEUMATOLOGICAL: Denies any joint pain, swelling, or any muscle pain. ENDOCRINE: Denies any polyuria or polydipsia. The rest of the 14-point review of systems is negative. Past Medical History Past Medical History: Thyroid Disorder Additional Past Medical History / Comment(s): Pt denies any other medical history at this time. History of Any Multi-Drug Resistant Organisms: None Reported Additional Past Surgical History / Comment(s): eye surgery Past Anesthesia/Blood Transfusion Reactions: No Reported Reaction Past Psychological History: No Psychological Hx Reported Smoking Status: Never smoker Past Alcohol Use History: None Reported Past Drug Use History: None Reported Medications and Allergies Home Medications Medication Instructions Recorded Confirmed Type Ezetimibe [Zetia] 10 mg PO DAILY 01/17/17 12/22/21 History Fenofibrate [Lofibra] 54 mg PO DAILY 01/17/17 12/22/21 History hydroCHLOROthiazide 25 mg PO DAILY 01/17/17 12/22/21 History Levothyroxine Sodium 88 mcg PO DAILY 12/28/20 12/22/21 History Donepezil [Aricept] 5 mg PO DAILY 12/22/21 12/22/21 History Allergies Allergy/AdvReac Type Severity Reaction Status Date / Time midazolam [From Versed] Allergy Vomiting Verified 12/22/21 20:21 cortisone AdvReac Vomiting Verified 12/22/21 20:21 meperidine [From Demerol] AdvReac Vomiting Verified 12/22/21 20:21 Physical Exam Vitals: Vital Signs Temp Pulse Pulse Resp BP BP BP 12/23/21 07:00 97.6 F 61 16 134/71 12/23/21 01:48 17 12/23/21 01:12 97.8 F 58 L 17 117/67 12/22/21 21:50 97.5 F L 61 18 139/75 12/22/21 20:48 17 12/22/21 17:37 98.2 F 75 17 130/63 Pulse Ox 12/23/21 07:00 98 12/23/21 01:48 12/23/21 01:12 97 12/22/21 21:50 100 12/22/21 20:48 12/22/21 17:37 100 Intake and Output 12/22/21 12/23/21 12/23/21 22:59 06:59 14:59 Intake Total 240 Output Total 300 Balance -300 240 Intake: Oral 240 Output: Urine 300 Other: Voiding Method Toilet Toilet # Voids 1 Weight 68.039 kg PHYSICAL EXAMINATION: GENERAL: The patient is alert and oriented x3, not in any acute distress. Well developed, well nourished. HEENT: Pupils are round and equally reacting to light. EOMI. No scleral icterus. No conjunctival pallor. Normocephalic, atraumatic. No pharyngeal erythema. No thyromegaly. CARDIOVASCULAR: S1 and S2 present. No murmurs, rubs, or gallops. PULMONARY: Chest is clear to auscultation, no wheezing or crackles. ABDOMEN: Soft, nontender, nondistended, normoactive bowel sounds. No palpable or ganomegaly. MUSCULOSKELETAL: No joint swelling or deformity. EXTREMITIES: No cyanosis, clubbing, or pedal edema. NEUROLOGICAL: Gross neurological examination did not reveal any focal deficits. SKIN: No rashes. Results CBC & Chem 7: 12/22/21 18:08 12/22/21 18:08 Labs: Abnormal Lab Results - Last 24 Hours (Table) 12/22/21 12/22/21 Range/Units 18:08 21:50 BUN 21 H (7-17) mg/dL Glucose 112 H (74-99) mg/dL Creatine Kinase 402 H (30-135) U/L Urine Appearance Cloudy H (Clear) Urine Nitrite Positive H (Negative) Ur Leukocyte Esterase Moderate H (Negative) Urine WBC 12 H (0-5) /hpf Amorphous Sediment Few H (None) /hpf Urine Bacteria Rare H (None) /hpf Urine Mucus Rare H (None) /hpf Microbiology - Last 24 Hours (Table) 12/22/21 21:50 Urine Culture - Preliminary Urine,Voided Thrombosis Risk Factor Assmnt - Choose All That Apply Each Factor Represents 1 point: Obesity (BMI >25) Each Risk Factor Represents 3 Points: Age 75 years or older Thrombosis Risk Factor Assessment Total Risk Factor Score: 4 Thrombosis Risk Factor Assessment Level: Moderate Risk Assessment and Plan Assessment: 1. UTI - Urine is positive for leukocyte esterase, nitrates and WBCs with bacteria - Patient remains on Rocephin 1 g IV daily; blood culture and urine culture is obtained and pending - We will tailor antibiotic therapy once final culture results are available 2. Intractable nausea/vomiting; likely related to UTI and sepsis; symptomatic treatment for nausea and vomiting 3. Acute renal injury/dehydration; IV fluids in form of normal saline at rate of 75; we will monitor strict PARVIZ's, degenerative electrolytes; avoid nephro toxic agents and hypertension 4. Elevated CPK; likely related to intractable vomiting and dehydration; IV fluids as indicated above 5. Hypertension; hydrochlorothiazide 25 mg daily 6. Hyperlipidemia; Zerit he has been milligrams daily, fenofibrate 54 mg daily 7. Hypothyroidism; levothyroxine 88 MCG daily DVT prophylaxis; SCDs CODE STATUS; full code
--- NOTE | 2021-12-24 19:32 | P.PN ---
Subjective Progress Note Date: 12/24/21 Principal diagnosis: UTI MAHESH/dehydration Intractable nausea/vomiting 86-year-old female history of hypertension who apparently was recently started on Aricept who presents by EMS today after being found on the bathroom floor. She states she became profoundly weak and nauseated Farhat for 20 to 4:30 PM tonight. No chest pain palpitations fevers chills or sweats she felt dizzy lightheaded. No diarrhea reported took her dose of Aricept this morning her states a 4 PM she was doing well when he came back on her and the floor she states she just got weak and went down to the floor she denies any injury. She was given IV Zofran and route by paramedics she still nauseated and feels like she has to vomit she also today complains some tingling to her legs and toes she was noted to be hyperventilating per paramedics. Laboratory review shows WBC of 6.1, hemoglobin 13.9 and platelet count of 272, sodium 138, potassium 3.5, BUN/creatinine of 21/0.74 and blood glucose of 112; CK of 402 EKG: interpreted by VANESSA, sinus rhythm (EKG sinus rhythm of 64. Interval 139 QRS duration 98 QT since QTC 443/452 sinus arrhythmia 12/24/2021 Patient is seen and evaluated with family members at bedside; reports improvement in nausea but continues to be dizzy with activity Vital signs are reviewed and reveal temperature of 97.7, pulse 56, respiration 18 and blood pressure 167/81 Urine culture is positive for gram negatives bacilli; patient remains on Rocephin 1 g IV daily Objective - Vital Signs Vital signs: Vital Signs Temp 97.7 F 12/24/21 07:00 Pulse 56 L 12/24/21 07:00 Resp 18 12/24/21 07:00 BP 167/81 12/24/21 07:00 Pulse Ox 98 12/24/21 07:00 FiO2 Intake & Output 12/23/21 12/24/21 12/24/21 18:59 06:59 18:59 Intake Total 700 1000 Balance 700 1000 Intake: Oral 700 1000 Other: # Voids 3 - Exam GENERAL: The patient is alert and oriented x3, not in any acute distress. Well developed, well nourished. HEENT: Pupils are round and equally reacting to light. EOMI. No scleral icterus. No conjunctival pallor. Normocephalic, atraumatic. No pharyngeal erythema. No thyromegaly. CARDIOVASCULAR: S1 and S2 present. No murmurs, rubs, or gallops. PULMONARY: Chest is clear to auscultation, no wheezing or crackles. ABDOMEN: Soft, nontender, nondistended, normoactive bowel sounds. No palpable organomegaly. MUSCULOSKELETAL: No joint swelling or deformity. EXTREMITIES: No cyanosis, clubbing, or pedal edema. NEUROLOGICAL: Gross neurological examination did not reveal any focal deficits. SKIN: No rashes. - Labs CBC & Chem 7: 12/22/21 18:08 12/22/21 18:08 Assessment and Plan Assessment: 1. UTI - Urine is positive for leukocyte esterase, nitrates and WBCs with bacteria - Patient remains on Rocephin 1 g IV daily; blood culture and urine culture is obtained and pending - We will tailor antibiotic therapy once final culture results are available 2. Intractable nausea/vomiting; likely related to UTI and sepsis; symptomatic treatment for nausea and vomiting 3. Acute renal injury/dehydration; IV fluids in form of normal saline at rate of 75; we will monitor strict PARVIZ's, degenerative electrolytes; avoid nephrotoxic agents and hypertension 4. Elevated CPK; likely related to intractable vomiting and dehydration; IV fluids as indicated above 5. Hypertension; hydrochlorothiazide 25 mg daily 6. Hyperlipidemia; Zerit he has been milligrams daily, fenofibrate 54 mg daily 7. Hypothyroidism; levothyroxine 88 MCG daily DVT prophylaxis; SCDs CODE STATUS; full code
[2021-12-25] MEDS: LEVOTHYROXINE 88 MCG TAB PO SCH (05:57)
[2021-12-25 09:16] LABS: African American GFR (CKD) 78.5 (60.0-200.0); Anion Gap 13.5 mmol/L (10.00-18.00); BUN/Creat Ratio 18.63 Ratio (12.00-20.00); Blood Urea Nitrogen 14.9 mg/dL (9.0-27.0); Calcium 10.1 mg/dL (8.7-10.3); Carbon Dioxide 28.5 mmol/L (20.0-27.5); Non-African American GFR(CKD) 67.7 (60.0-200.0); Potassium 3.7 mmol/L (3.5-5.5)
[2021-12-25 09:22] LABS: Basophils # (A) 0.03 X 10*3/uL (0.00-0.10); Basophils % (A) 0.5 %; Eosinophils # (A) 0.18 X 10*3/uL (0.04-0.35); Eosinophils % (A) 2.7 %; HCT 45.9 % (37.2-46.3); HGB 14.5 g/dL (12.0-15.0); Immature Grans, Automated 0.2 %; Lymphocytes # (A) 2.59 X 10*3/uL (0.90-5.00); Lymphocytes % (A) 39.4 %; MCH 29.4 pg (27.0-32.0); MCHC 31.6 g/dL (32.0-37.0); MCV 93.1 fL (80.0-97.0); Mean Platelet Volume 9.7 fL (9.5-12.2); Monocytes # (A) 0.55 X 10*3/uL (0.20-1.00); Monocytes % (A) 8.4 %; NRBC Per 100 WBC 0 /100 WBCS (0.0-0.0); Neutrophils # (A) 3.22 X 10*3/uL (1.80-7.70); Neutrophils % (A) 48.8 %; Platelet Count 301 X 10*3/uL (140-440); RBC 4.93 X 10*6/uL (4.10-5.20); RDW 12.8 % (11.5-14.5); WBC 6.58 X 10*3/uL (4.50-10.00)
[2021-12-25] MEDS: EZETIMIBE 10 MG TAB PO SCH (10:35)
[2021-12-25] MEDS: DONEPEZIL 5 MG TAB PO SCH (10:35)
[2021-12-25] MEDS: hydroCHLOROthiazide 25 MG TAB PO SCH (10:36)
[2021-12-25] MEDS: FENOFIBRATE 54 MG TAB PO SCH (10:36)
[2021-12-25] MEDS: SODIUM CHLORIDE 0.9% 1,000 ML IV SCH (10:41)
[2021-12-25 14:40] VITALS: BP 147/74; PULSE 69; TEMP 98.1
== END 2021-12-25 17:22 ==
LOC: EC 17:31 → 6NMEDSUR 19:25
PROVIDERS: ADMIT Hospitalist; ATTEND Hospitalist
DX: A41.9 Sepsis, unspecified organism (principal); N39.0 Urinary tract infection, site not specified; N17.9 Acute kidney failure, unspecified; E86.0 Dehydration; R11.2 Nausea with vomiting, unspecified; I10 Essential (primary) hypertension; E78.5 Hyperlipidemia, unspecified; E03.9 Hypothyroidism, unspecified; R74.8 Abnormal levels of other serum enzymes; E66.9 Obesity, unspecified; Z68.27 Body mass index [BMI] 27.0-27.9, adult; Z79.890 Hormone replacement therapy; Z79.899 Other long term (current) drug therapy; Z88.5 Allergy status to narcotic agent; Z88.8 Allergy status to other drugs, medicaments and biological substances; Z98.890 Other specified postprocedural states
CPT/HCPCS: 96361 ×3; 96365; 96366; 96375; 99285; 36415; 93005; 85379; 80053; 80048; 84443; 82550; 83735; 85025 ×2; 81001; 87086; 87077; 87186; 71046; G0378 ×4; J0780; J0696 ×3

== ENCOUNTER 2021-12-29 13:55 | Emergency (ER) | payer MEDICARE ==
[2021-12-29 14:11] VITALS: TEMP 98.1
[2021-12-29] MEDS ORDERED: SODIUM CHLORIDE 0.9% 1,000 ML IV ONE (14:25)
--- NOTE | 2021-12-29 14:28 | ED ---
General Adult HPI - General Chief complaint: Recheck/Abnormal Lab/Rx Stated complaint: Irregular labs-Sent by Dr. Link Time Seen by Provider: 12/29/21 14:15 Source: patient, RN notes reviewed, old records reviewed Mode of arrival: wheelchair Limitations: no limitations - History of Present Illness Initial comments: This is an 86-year-old female presents emergency Department complaining of generalized weakness. Patient was in the hospital last week for urinary tract infection and after 4 days was discharged home. Patient states she went to follow-up with Dr. Link today and Dr. Link stated that she needs to come to the hospital for hydration. Patient states she has been extremely weak lately and has not been eating or drinking very good. Patient denies any fever chills or cough per patient denies headache patient denies numbness weakness. Patient denies any chest pain difficult breathing shortest breath or palpitations. Patient denies abdominal pain patient denies nausea vomiting diarrhea. - Related Data Home Medications Medication Instructions Recorded Confirmed Ezetimibe [Zetia] 10 mg PO DAILY 01/17/17 12/22/21 Fenofibrate [Lofibra] 54 mg PO DAILY 01/17/17 12/22/21 hydroCHLOROthiazide 25 mg PO DAILY 01/17/17 12/22/21 Levothyroxine Sodium 88 mcg PO DAILY 12/28/20 12/22/21 Donepezil [Aricept] 5 mg PO DAILY 12/22/21 12/22/21 Previous Rx's Medication Instructions Recorded Cephalexin [Keflex] 500 mg PO Q8HR 7 Days #21 cap 12/25/21 Allergies Allergy/AdvReac Type Severity Reaction Status Date / Time midazolam [From Versed] Allergy Vomiting Verified 12/22/21 20:21 cortisone AdvReac Vomiting Verified 12/22/21 20:21 meperidine [From Demerol] AdvReac Vomiting Verified 12/22/21 20:21 Review of Systems ROS Statement: Those systems with pertinent positive or pertinent negative responses have been documented in the HPI. ROS Other: All systems not noted in ROS Statement are negative. Past Medical History Past Medical History: Thyroid Disorder Additional Past Medical History / Comment(s): Pt denies any other medical history at this time. History of Any Multi-Drug Resistant Organisms: None Reported Additional Past Surgical History / Comment(s): eye surgery Past Anesthesia/Blood Transfusion Reactions: No Reported Reaction Past Psychological History: No Psychological Hx Reported Smoking Status: Never smoker Past Alcohol Use History: None Reported Past Drug Use History: None Reported General Exam - General Exam Comments Initial Comments: GENERAL: Patient is well-developed and well-nourished. Patient is nontoxic and well-h ydrated and is in no acute distress. ENT: Neck is soft and supple. No significant lymphadenopathy is noted. Oropharynx is clear. Moist mucous membranes. Neck has full range of motion without elic iting any pain. EYES: The sclera were anicteric and conjunctiva were pink and moist. Extraocular movements were intact and pupils were equal round and reactive to light. Eyelids were unremarkable. PULMONARY: Unlabored respirations. Good breath sounds bilaterally. No audible rales rhonchi or wheezing was noted. CARDIOVASCULAR: There is a regular rate and rhythm without any murmurs gallops or rubs. ABDOMEN: Soft and nontender with normal bowel sounds. SKIN: Skin is clear with no lesions or rashes and otherwise unremarkable. NEUROLOGIC: Patient is alert and oriented x3. Cranial nerves II through XII are grossly intact. Motor and sensory are also intact. Normal speech, volume and content. Symmetrical smile. MUSCULOSKELETAL: Normal extremities with adequate strength and full range of motion. No lower extremity swelling or edema. No calf tenderness. LYMPHATICS: No significant lymphadenopathy is noted PSYCHIATRIC: Normal psychiatric evaluation. N Limitations: no limitations Course Vital Signs 12/29/21 12/29/21 14:07 14:52 Temperature 98.1 F Pulse Rate 109 H 59 L Respiratory 18 12 Rate Blood Pressure 127/69 124/76 O2 Sat by Pulse 98 97 Oximetry Medical Decision Making - Medical Decision Making EKG shows sinus bradycardia 59 bpm NE interval is 120 QRS is 97 QT interval 11/16/1969 QTC is 427. Patient received fluids in the emergency department was feeling considerably better. Patient wanted be discharged home. I spoke with Dr. Link he was in agreement. Dr. Link says he'll follow-up the patient tomorrow afternoon - Lab Data Result diagrams: 12/29/21 14:36 12/29/21 16:06 Lab Results 12/29/21 12/29/21 12/29/21 Range/Units 14:36 14:36 14:36 WBC 5.9 (3.8-10.6) k/uL RBC 5.15 (3.80-5.40) m/uL Hgb 15.7 (11.4-16.0) gm/dL Hct 47.5 H (34.0-46.0) % MCV 92.3 (80.0-100.0) fL MCH 30.5 (25.0-35.0) pg MCHC 33.0 (31.0-37.0) g/dL RDW 13.2 (11.5-15.5) % Plt Count 320 (150-450) k/uL MPV 7.4 Neutrophils % 62 % Lymphocytes % 30 % Monocytes % 5 % Eosinophils % 2 % Basophils % 1 % Neutrophils # 3.6 (1.3-7.7) k/uL Lymphocytes # 1.8 (1.0-4.8) k/uL Monocytes # 0.3 (0-1.0) k/uL Eosinophils # 0.1 (0-0.7) k/uL Basophils # 0.0 (0-0.2) k/uL Sodium (137-145) mmol/L Potassium (3.5-5.1) mmol/L Chloride (98-107) mmol/L Carbon Dioxide (22-30) mmol/L Anion Gap mmol/L BUN (7-17) mg/dL Creatinine (0.52-1.04) mg/dL Est GFR (CKD-EPI)AfAm (>60 ml/min/1.73 sqM) Est GFR (CKD-EPI)NonAf (>60 ml/min/1.73 sqM) Glucose (74-99) mg/dL Plasma Lactic Acid Bjorn 1.4 (0.7-2.0) mmol/L Calcium (8.4-10.2) mg/dL Magnesium (1.6-2.3) mg/dL Total Bilirubin (0.2-1.3) mg/dL AST (14-36) U/L ALT (4-34) U/L Alkaline Phosphatase (38-126) U/L Troponin I (0.000-0.034) ng/mL Total Protein (6.3-8.2) g/dL Albumin (3.5-5.0) g/dL Urine Color Light Yellow Urine Appearance Clear (Clear) Urine pH 7.5 (5.0-8.0) Ur Specific [place] 1.006 (1.001-1.035) Urine Protein Negative (Negative) Urine Glucose (UA) Negative (Negative) Urine Ketones Negative (Negative) Urine Blood Negative (Negative) Urine Nitrite Negative (Negative) Urine Bilirubin Negative (Negative) Urine Urobilinogen <2.0 (<2.0) mg/dL Ur Leukocyte Esterase Negative (Negative) 12/29/21 12/29/21 Range/Units 16:06 16:06 WBC (3.8-10.6) k/uL RBC (3.80-5.40) m/uL Hgb (11.4-16.0) gm/dL Hct (34.0-46.0) % MCV (80.0-100.0) fL MCH (25.0-35.0) pg MCHC (31.0-37.0) g/dL RDW (11.5-15.5) % Plt Count (150-450) k/uL MPV Neutrophils % % Lymphocytes % % Monocytes % % Eosinophils % % Basophils % % Neutrophils # (1.3-7.7) k/uL Lymphocytes # (1.0-4.8) k/uL Monocytes # (0-1.0) k/uL Eosinophils # (0-0.7) k/uL Basophils # (0-0.2) k/uL Sodium 140 (137-145) mmol/L Potassium 4.1 (3.5-5.1) mmol/L Chloride 107 (98-107) mmol/L Carbon Dioxide 29 (22-30) mmol/L Anion Gap 4 mmol/L BUN 20 H (7-17) mg/dL Creatinine 0.70 (0.52-1.04) mg/dL Est GFR (CKD-EPI)AfAm >90 (>60 ml/min/1.73 sqM) Est GFR (CKD-EPI)NonAf 80 (>60 ml/min/1.73 sqM) Glucose 87 (74-99) mg/dL Plasma Lactic Acid Bjorn (0.7-2.0) mmol/L Calcium 9.4 (8.4-10.2) mg/dL Magnesium 1.8 (1.6-2.3) mg/dL Total Bilirubin 0.5 (0.2-1.3) mg/dL AST 23 (14-36) U/L ALT 16 (4-34) U/L Alkaline Phosphatase 44 (38-126) U/L Troponin I <0.012 (0.000-0.034) ng/mL Total Protein 6.6 (6.3-8.2) g/dL Albumin 4.0 (3.5-5.0) g/dL Urine Color Urine Appearance (Clear) Urine pH (5.0-8.0) Ur Specific [place] (1.001-1.035) Urine Protein (Negative) Urine Glucose (UA) (Negative) Urine Ketones (Negative) Urine Blood (Negative) Urine Nitrite (Negative) Urine Bilirubin (Negative) Urine Urobilinogen (<2.0) mg/dL Ur Leukocyte Esterase (Negative) Disposition Clinical Impression: Generalized weakness, Dehydration Disposition: HOME SELF-CARE Condition: Good Additional Instructions: Patient should increase by mouth intake both food and fluid. Is patient prescribed a controlled substance at d/c from ED?: No Referrals: Jose Link MD [Primary Care Provider] - 1-2 days Time of Disposition: 17:32
[2021-12-29 15:03] LABS: Basophils % (A) 1 %; Eosinophils # (A) 0.1 k/uL (0-0.7); Eosinophils % (A) 2 %; HCT 47.5 % (34.0-46.0); HGB 15.7 gm/dL (11.4-16.0); Lymphocytes # (A) 1.8 k/uL (1.0-4.8); Lymphocytes % (A) 30 %; MCH 30.5 pg (25.0-35.0); MCV 92.3 fL (80.0-100.0); Mean Platelet Volume 7.4; Monocytes # (A) 0.3 k/uL (0-1.0); Monocytes % (A) 5 %; Neutrophils # (A) 3.6 k/uL (1.3-7.7); Neutrophils % (A) 62 %; Platelet Count 320 k/uL (150-450); RBC 5.15 m/uL (3.80-5.40); RDW 13.2 % (11.5-15.5); WBC 5.9 k/uL (3.8-10.6)
--- NOTE | 2021-12-29 15:15 | XR ---
EXAMINATION TYPE: XR chest 2V DATE OF EXAM: 12/29/2021 COMPARISON: Chest x-ray December 22, 2021 HISTORY: Weakness. TECHNIQUE: Frontal and lateral views of the chest are obtained. FINDINGS: Focal eventration and elevation of the anterior aspect right hemidiaphragm. There is no kingsley picious focal air space opacity, pleural effusion, or pneumothorax seen. The cardiac silhouette size remains within normal limits. The osseous structures are intact. IMPRESSION: No acute pulmonary process. No significant change from prior.
[2021-12-29 16:35] LABS: ALT 16 U/L (4-34); AST 23 U/L (14-36); African American GFR (CKD) >90 (>60 ml/min/1.73 sqM); Alkaline Phosphatase 44 U/L (38-126); Anion Gap 4 mmol/L; Blood Urea Nitrogen 20 mg/dL (7-17); Calcium 9.4 mg/dL (8.4-10.2); Carbon Dioxide 29 mmol/L (22-30); Chloride 107 mmol/L (98-107); Glucose 87 mg/dL (74-99); Magnesium 1.8 mg/dL (1.6-2.3); Non-African American GFR(CKD) 80 (>60 ml/min/1.73 sqM); Potassium 4.1 mmol/L (3.5-5.1); Sodium 140 mmol/L (137-145); Total Bilirubin 0.5 mg/dL (0.2-1.3); Total Protein 6.6 g/dL (6.3-8.2)
[2021-12-29 16:53] LABS: Appearance,Urine Clear (Clear); Bilirubin,Urine Negative (Negative); Blood,Urine Negative (Negative); Color,Urine Light Yellow; Glucose,Urine (UA) Negative (Negative); Ketones,Urine Negative (Negative); Leukocyte Esterase,Urine Negative (Negative); Nitrite,Urine Negative (Negative); PH, Urine 7.5 (5.0-8.0); Protein,Urine Negative (Negative); Specific Gravity,Urine 1.006 (1.001-1.035); Urobilinogen,Urine <2.0 mg/dL (<2.0)
[2021-12-29 17:55] VITALS: BP 139/97; PULSE 58; RESP 14
== END 2021-12-29 18:00 | disposition home or self-care (01) ==
LOC: EC 13:55
DX: E86.0 Dehydration (principal); E07.9 Disorder of thyroid, unspecified; Z79.890 Hormone replacement therapy; Z79.899 Other long term (current) drug therapy
CPT/HCPCS: 36415; 71046; 80053; 81003; 83605; 83735; 84484; 85025; 93005; 96360; 99285

== ENCOUNTER → 2023-01-10 | Outpatient (CLI) | payer MEDICARE ==
--- NOTE | 2023-01-11 08:08 | MM ---
Reason for Exam: Screening (asymptomatic). Last screening mammogram was performed 12 month(s) ago. Patient History: Menarche at age 16. Risk Values: Annel 5 year model risk: 0.8%. NCI Lifetime model risk: 0.8%. Prior Study Comparison: 01/16/2022 Bilateral Screening Mammogram, Unknown. Tissue Density: The breast tissue is heterogeneously dense. This may lower the sensitivity of mammography. Findings: Analyzed By CAD. Asymmetric density right cc view 6.7 cm from the nipple. Additional views are recommended. No suspicious calcifications evident. Overall Assessment: Incomplete: need additional imaging evaluation, BI-RAD 0 Management: Diagnostic Mammogram of the right breast. . Patient should continue monthly self-breast exams. A clinical breast exam by your physician is recommended on an annual basis. This exam should not preclude additional follow-up of suspicious palpable abnormalities. Note on Annel scores and lifetime risk: 1. A Annel score greater than 3% is considered moderate risk. If this is the case, consider specialist referral to assess eligibility for a risk reducing agent. 2. If overall lifetime risk for the development of breast cancer is 20% or higher, the patient may qualify for future screening with alternating mammogram and breast MRI. Electronically signed and approved by: Vladislav Allen M.D. Radiologis
== END | disposition home or self-care (01) ==
LOC: RADMAMWWP 07:53
PROVIDERS: ATTEND Family Medicine
DX: Z00.00 Encounter for general adult medical examination without abnormal findings (principal); Z12.31 Encounter for screening mammogram for malignant neoplasm of breast
CPT/HCPCS: 77063; 77067

== ENCOUNTER → 2023-01-17 | Outpatient (CLI) | payer MEDICARE ==
--- NOTE | 2023-01-17 14:06 | MM ---
Reason for Exam: Additional evaluation requested from abnormal screening. Last screening mammogram was performed less than 1 month ago. Patient History: Menarche at age 16. Risk Values: Annel 5 year model risk: 0.8%. NCI Lifetime model risk: 0.8%. Prior Study Comparison: 01/16/2022 Bilateral Screening Mammogram, Unknown. 01/10/2023 Bilateral MG 3D screening mammo w/cad, [facility]. Tissue Density: Right: There are scattered fibroglandular densities. Findings: Analyzed By CAD. Pattern appears stable. Focal asymmetry within the outer right breast disperses on compression. No persistent suspicious density on mediolateral or compression mediolateral oblique views are evident. Short-term follow-up can be performed. No suspicious groups of microcalcifications, spiculated or lobular masses, architectural distortion or other secondary signs of malignancy are mammographically apparent. Overall Assessment: Probably benign, BI-RAD 3 Management: Diagnostic Mammogram of the right breast in 6 months. A negative mammogram report should not preclude additional follow up of suspicious palpable abnormalities. Patient should continue monthly self breast exam. A clinical breast exam by your physician is recommended on an annual basis and results should be correlated with mammographic findings. Electronically signed and approved by: Rocco Hernández D.O. Radiologis
== END | disposition home or self-care (01) ==
LOC: RADMAMWWP 13:29
PROVIDERS: ATTEND Family Medicine
DX: N64.89 Other specified disorders of breast (principal)
CPT/HCPCS: 77065; G0279; 77061

== ENCOUNTER 2023-09-06 12:58 | Emergency (ER) | payer MEDICARE ==
[2023-09-06 13:34] VITALS: TEMP 97.1
[2023-09-06 14:05] LABS: Basophils % (A) 0 %; Eosinophils # (A) 0.1 k/uL (0-0.7); Eosinophils % (A) 1 %; HCT 41.9 % (34.0-46.0); HGB 14.2 gm/dL (11.4-16.0); Lymphocytes # (A) 1.6 k/uL (1.0-4.8); Lymphocytes % (A) 19 %; MCH 31.7 pg (25.0-35.0); MCHC 33.8 g/dL (31.0-37.0); MCV 93.6 fL (80.0-100.0); Mean Platelet Volume 8.5; Monocytes # (A) 0.5 k/uL (0-1.0); Monocytes % (A) 6 %; Neutrophils % (A) 72 %; Platelet Count 216 k/uL (150-450); RBC 4.48 m/uL (3.80-5.40); RDW 13.6 % (11.5-15.5); WBC 8.2 k/uL (3.8-10.6)
--- NOTE | 2023-09-06 14:13 | ED ---
General Adult HPI - General Source: patient, EMS Mode of arrival: EMS Limitations: no limitations <Dipesh Goetz - Last Filed: 09/06/23 15:05> <John Toledo - Last Filed: 09/06/23 17:05> - General Chief complaint: Altered Mental Status Stated complaint: AMS Time Seen by Provider: 09/06/23 13:09 - History of Present Illness Initial comments: Dictation was produced using [email or web address] dictation software. please excuse any grammatical, word or spelling errors. Chief Complaint: 87-year-old female presents emergency department for altered mental status History of Present Illness: Patient is 87-year-old female she has past medical history of dementia. Patient was acting aggressively at the correction. She wa s given an extra dose of her Xanax medication in order to try and calm herself down. She was given a second dose all of a sudden patient became hot and flushed and perhaps syncopized. EMS was called initial blood pressure was slightly low. Patient is an unreliable historian. Unable to obtain ROS secondary to patient's history of dementia (Dipesh Goetz) - Related Data Home Medications Medication Instructions Recorded Confirmed Ezetimibe [Zetia] 10 mg PO DAILY@79901/17/17 09/06/23 Fenofibrate [Lofibra] 54 mg PO DAILY@79901/17/17 09/06/23 Levothyroxine Sodium 88 mcg PO DAILY@79912/28/20 09/06/23 ALPRAZolam [Xanax] 0.5 mg PO BID PRN 09/06/23 09/06/23 Acetaminophen Tab [Tylenol Tab] 500 - 1,000 mg PO Q6H PRN 09/06/23 09/06/23 Calcium Citrate 250 mg PO DAILY@79909/06/23 09/06/23 Diclofenac Sodium [Voltaren 1 applic TOPICAL QID PRN 09/06/23 09/06/23 Arthritis Pain 1% Gel] Multivitamins, Thera [Multivitamin 1 tab PO DAILY@79909/06/23 09/06/23 (formulary)] Venlafaxine HCl ER [Effexor Xr] 37.5 mg PO DAILY@79909/06/23 09/06/23 Allergies Allergy/AdvReac Type Severity Reaction Status Date / Time midazolam [From Versed] Allergy Vomiting Verified 09/06/23 13:47 cortisone AdvReac Vomiting Verified 09/06/23 13:47 meperidine [From Demerol] AdvReac Vomiting Verified 09/06/23 13:47 nitrofurantoin AdvReac Unknown Verified 09/06/23 13:47 [From Macrobid] Review of Systems ROS Other: All systems not noted in ROS Statement are negative. <Dipesh Goetz - Last Filed: 09/06/23 15:05> ROS Other: All systems not noted in ROS Statement are negative. <John Toledo - Last Filed: 09/06/23 17:05> ROS Statement: Those systems with pertinent positive or pertinent negative responses have been documented in the HPI. Past Medical History Past Medical History: Dementia, Hypertension, Thyroid Disorder Additional Past Medical History / Comment(s): Pt denies any other medical history at this time. History of Any Multi-Drug Resistant Organisms: None Reported Additional Past Surgical History / Comment(s): eye surgery Past Anesthesia/Blood Transfusion Reactions: No Reported Reaction Past Psychological History: No Psychological Hx Reported Smoking Status: Never smoker Past Alcohol Use History: None Reported Past Drug Use History: None Reported <Dipesh Goetz - Last Filed: 09/06/23 15:05> General Exam Limitations: no limitations <Dipesh Goetz - Last Filed: 09/06/23 15:05> - General Exam Comments Initial Comments: PHYSICAL EXAM: General Impression: Alert and oriented x3/4, not in acute distress, sleepy HEENT: Normocephalic atraumatic, extra-ocular movements intact, pupils equal and reactive to light bilaterally, mucous membranes moist. Cardiovascular: Heart regular rate and rhythm Chest: Able to complete full sentences, no retractions, no tachypnea Abdomen: abdomen soft, non-tender, non-distended, no organomegaly Musculoskeletal: Pulses present and equal in all extremities, no peripheral edema Motor: no focal deficits noted Neurological: CN II-XII grossly intact, no focal motor or sensory deficits noted Skin: Intact with no visualized rashes Psych: Normal affect and mood (Dipesh Goetz) Course Vital Signs 09/06/23 09/06/23 09/06/23 13:00 14:30 15:38 Temperature 97.1 F L Pulse Rate 50 L 62 66 Respiratory 18 18 15 Rate Blood Pressure 120/65 147/81 146/74 O2 Sat by Pulse 95 99 96 Oximetry 09/06/23 16:19 Temperature Pulse Rate 56 L Respiratory 16 Rate Blood Pressure 139/75 O2 Sat by Pulse 96 Oximetry EKG Findings - EKG Comments: EKG Findings:: My EKG interpretation: Ventricular rate 57, sinus bradycardia,. 127, cures 90, QTc 443. No NM prolongation, no QTC prolongation, no ST or T-wave changes noted. EKOverall, this EKG is unremarkable <Dipesh Goetz - Last Filed: 09/06/23 15:05> Medical Decision Making - Lab Data Result diagrams: 09/06/23 13:58 09/06/23 13:58 <Dipesh Goetz - Last Filed: 09/06/23 15:05> - Lab Data Result diagrams: 09/06/23 13:58 09/06/23 13:58 <John Toledo - Last Filed: 09/06/23 17:05> - Medical Decision Making Was pt. sent in by a medical professional or institution (, PA, GLOBAL MARKETING COORDINATOR, urgent care, hospital, or [facility]...) When possible be specific @ -No Did you speak to anyone other than the patient for history (EMS, parent, family, police, friend...)? What history was obtained from this source @ -Obtained from EMS Did you review nursing and triage notes (agree or disagree)? Why? @ -I reviewed and agree with nursing and triage notes Were old charts reviewed (outside hosp., previous admission, EMS record, old EKG, old radiological studies, urgent care reports/EKG's, [facility] records)? Report findings @ -No old charts were reviewed Differential Diagnosis (chest pain, altered mental status, abdominal pain women, abdominal pain men, vaginal bleeding, musculoskeletal, weakness, fever, dyspnea, syncope, headache, dizziness, GI bleed, back pain, seizure, CVA, palpatations, mental health)? @ -Differential Syncope: Valvular disease, hypertrophic cardiomyopathy, pulmonary embolism, tamponade, tachycardia, bradycardia, SC, hypovolemia, hemorrhage, dissection, anemia, intracranial hemorrhage, seizure, hypoglycemia, carbon monoxide poisoning, this is not meant to be an all-inclusive list. EKG interpreted by me (3pts min.). @ -See above X-rays interpreted by me (1pt min.). @ -None done CT interpreted by me (1pt min.). @ -None done U/S interpreted by me (1pt. min.). @ -None done What testing was considered but not performed or refused? (CT, X-rays, U/S, labs)? Why? @ -None What meds were considered but not given or refused? Why? @ -None Did you discuss the management of the patient with other professionals (professionals i.e. DrTawnya, PA, GLOBAL MARKETING COORDINATOR, lab, RT, psych nurse, social media marketing analyst, jackspooler, teacher, pharmaceutical officer, family preservation caseworker)? Give summary @ -No Was smoking cessation discussed for >3mins.? @ -No Was critical care preformed (if so, how long)? @ -No Were there social determinants of health that impacted care today? How? (Homelessness, low income, unemployed, alcoholism, drug addiction, transportation, low edu. Level, literacy, decrease access to med. care, [facility] [facility], rehab)? @ -No Was there de-escalation of care discussed even if they declined (Discuss DNR or withdrawal of care, Hospice)? DNR status @ -No What co-morbidities impacted this encounter? (DM, HTN, Smoking, COPD, CAD, Cancer, CVA, ARF, Chemo, Hep., AIDS, mental health diagnosis, sleep apnea, morbid obesity)? @ -None Was patient admitted / discharged? Hospital course, mention meds given and route, prescriptions, significant lab abnormalities, going to OR and other pertinent info. @ -87-year-old female presents to the emergency department for alleged syncopal episode after having been given an extra dose of benzodiazepines for aggressive behavior. Vital signs upon arrival are within acceptable limits. Patient resting comfortably at bedside. Laboratory evaluation is unremarkable. Pending CT scan of the brain C-spine and urine studies. Patient reevaluated bedside at 3:04 PM still sleepy likely from the benzodiazepines. Patient care signed out to Dr. Toledo at 3:00 PM Undiagnosed new problem with uncertain prognosis? @ -No Drug Therapy requiring intensive monitoring for toxicity (Heparin, Nitro, Insulin, Cardizem)? @ -No Were any procedures done? @ -No Diagnosis/symptom? Acute, or Chronic, or Acute on Chronic? Uncomplicated (without systemic symptoms) or Complicated (systemic symptoms)? @ -Syncope Side effects of treatment? @ -No Exacerbation, Progression, or Severe Exacerbation? @ -No Poses a threat to life or bodily function? How? (Chest pain, USA, SC, pneumonia, PE, COPD, DKA, ARF, appy, cholecystitis, CVA, Diverticulitis, Homicidal, Suicidal, threat to staff... and all critical care pts) @ -No (Dipesh Goetz) Patient is a 87-year-old female who was given an additional dose of her benzodiazepine for aggressive behavior and had a possible syncopal episode but became slightly altered because of it. Was sent from her nursing facility for further evaluation. Patient is back to her baseline mental status. Patient was signed out to me pending results of labs and imaging. Patient's laboratory studies are within acceptable limits. No evidence of UTI. Patient CT imaging of the brain and C-spine as interpreted by myself reveals no evidence of acute intracranial injury or cervical spine injury. Chronic degenerative changes present. I spoke with the patient's as well as the patient to update him. He states patient is currently at baseline. We discussed is likely secondary to the extra dose of Xanax that was given to the patient. Patient will be discharged home at this time if she is back to her baseline mental status with normal workup. They were in agreement this plan. I instructed the patient to follow up with their PCP in the next 1-3 days. I explained that the patient should return to the emergency department if they experience any worsening symptoms. Strict return precautions were discussed with the patient. The patient expressed understanding of these instructions. I answered all questions that the patient had. The patient was discharged home in good condition with their prescriptions and follow up information. Diagnosis/symptom? @ -Dementia, medication side effect Acute, or Chronic, or Acute on Chronic? @ -Acute Uncomplicated (without systemic symptoms) or Complicated (systemic symptoms)? @ -Complicated Side effects of treatment? @ -None Exacerbation, Progression, or Severe Exacerbation] @ -No Poses a threat to life or bodily function? @ -Unlikely (John Toledo) - Lab Data Lab Results 09/06/23 09/06/23 09/06/23 Range/Units 13:58 13:58 13:58 WBC 8.2 (3.8-10.6) k/uL RBC 4.48 (3.80-5.40) m/uL Hgb 14.2 (11.4-16.0) gm/dL Hct 41.9 (34.0-46.0) % MCV 93.6 (80.0-100.0) fL MCH 31.7 (25.0-35.0) pg MCHC 33.8 (31.0-37.0) g/dL RDW 13.6 (11.5-15.5) % Plt Count 216 (150-450) k/uL MPV 8.5 Neutrophils % 72 % Lymphocytes % 19 % Monocytes % 6 % Eosinophils % 1 % Basophils % 0 % Neutrophils # 6.0 (1.3-7.7) k/uL Lymphocytes # 1.6 (1.0-4.8) k/uL Monocytes # 0.5 (0-1.0) k/uL Eosinophils # 0.1 (0-0.7) k/uL Basophils # 0.0 (0-0.2) k/uL Sodium 138 (137-145) mmol/L Potassium 3.9 (3.5-5.1) mmol/L Chloride 107 (98-107) mmol/L Carbon Dioxide 25 (22-30) mmol/L Anion Gap 6 mmol/L BUN 17 (7-17) mg/dL Creatinine 0.96 (0.52-1.04) mg/dL Est GFR (CKD-EPI)AfAm 62 (>60 ml/min/1.73 sqM) Est GFR (CKD-EPI)NonAf 54 (>60 ml/min/1.73 sqM) Glucose 97 (74-99) mg/dL Calcium 9.4 (8.4-10.2) mg/dL Total Bilirubin 0.7 (0.2-1.3) mg/dL AST 30 (14-36) U/L ALT 14 (4-34) U/L Alkaline Phosphatase 50 (38-126) U/L Troponin I <0.012 (0.000-0.034) ng/mL Total Protein 6.4 (6.3-8.2) g/dL Albumin 3.9 (3.5-5.0) g/dL Urine Color Urine Appearance (Clear) Urine pH (5.0-8.0) Ur Specific [place] (1.001-1.035) Urine Protein (Negative) Urine Glucose (UA) (Negative) Urine Ketones (Negative) Urine Blood (Negative) Urine Nitrite (Negative) Urine Bilirubin (Negative) Urine Urobilinogen (<2.0) mg/dL Ur Leukocyte Esterase (Negative) 09/06/23 Range/Units 14:56 WBC (3.8-10.6) k/uL RBC (3.80-5.40) m/uL Hgb (11.4-16.0) gm/dL Hct (34.0-46.0) % MCV (80.0-100.0) fL MCH (25.0-35.0) pg MCHC (31.0-37.0) g/dL RDW (11.5-15.5) % Plt Count (150-450) k/uL MPV Neutrophils % % Lymphocytes % % Monocytes % % Eosinophils % % Basophils % % Neutrophils # (1.3-7.7) k/uL Lymphocytes # (1.0-4.8) k/uL Monocytes # (0-1.0) k/uL Eosinophils # (0-0.7) k/uL Basophils # (0-0.2) k/uL Sodium (137-145) mmol/L Potassium (3.5-5.1) mmol/L Chloride (98-107) mmol/L Carbon Dioxide (22-30) mmol/L Anion Gap mmol/L BUN (7-17) mg/dL Creatinine (0.52-1.04) mg/dL Est GFR (CKD-EPI)AfAm (>60 ml/min/1.73 sqM) Est GFR (CKD-EPI)NonAf (>60 ml/min/1.73 sqM) Glucose (74-99) mg/dL Calcium (8.4-10.2) mg/dL Total Bilirubin (0.2-1.3) mg/dL AST (14-36) U/L ALT (4-34) U/L Alkaline Phosphatase (38-126) U/L Troponin I (0.000-0.034) ng/mL Total Protein (6.3-8.2) g/dL Albumin (3.5-5.0) g/dL Urine Color Light Yellow Urine Appearance Clear (Clear) Urine pH 6.5 (5.0-8.0) Ur Specific [place] 1.010 (1.001-1.035) Urine Protein Negative (Negative) Urine Glucose (UA) Negative (Negative) Urine Ketones Negative (Negative) Urine Blood Negative (Negative) Urine Nitrite Negative (Negative) Urine Bilirubin Negative (Negative) Urine Urobilinogen <2.0 (<2.0) mg/dL Ur Leukocyte Esterase Negative (Negative) Disposition <Dipesh Goetz - Last Filed: 09/06/23 15:05> Is patient prescribed a controlled substance at d/c from ED?: No Time of Disposition: 16:00 <John Toledo - Last Filed: 09/06/23 17:05> Clinical Impression: Dementia, Medication side effect Disposition: HOME SELF-CARE Condition: Good Instructions (If sedation given, give patient instructions): Dementia (ED) Referrals: Jose Link MD [Primary Care Provider] - 1-2 days
[2023-09-06 14:21] LABS: ALT 14 U/L (4-34); AST 30 U/L (14-36); African American GFR (CKD) 62 (>60 ml/min/1.73 sqM); Albumin 3.9 g/dL (3.5-5.0); Alkaline Phosphatase 50 U/L (38-126); Anion Gap 6 mmol/L; Blood Urea Nitrogen 17 mg/dL (7-17); Calcium 9.4 mg/dL (8.4-10.2); Carbon Dioxide 25 mmol/L (22-30); Chloride 107 mmol/L (98-107); Glucose 97 mg/dL (74-99); Non-African American GFR(CKD) 54 (>60 ml/min/1.73 sqM); Potassium 3.9 mmol/L (3.5-5.1); Sodium 138 mmol/L (137-145); Total Bilirubin 0.7 mg/dL (0.2-1.3); Total Protein 6.4 g/dL (6.3-8.2)
[2023-09-06 15:25] LABS: Appearance,Urine Clear (Clear); Bilirubin,Urine Negative (Negative); Blood,Urine Negative (Negative); Color,Urine Light Yellow; Glucose,Urine (UA) Negative (Negative); Ketones,Urine Negative (Negative); Leukocyte Esterase,Urine Negative (Negative); Nitrite,Urine Negative (Negative); PH, Urine 6.5 (5.0-8.0); Protein,Urine Negative (Negative); Urobilinogen,Urine <2.0 mg/dL (<2.0)
--- NOTE | 2023-09-06 15:32 | CT ---
EXAMINATION TYPE: CT brain cspine wo con CT DLP: 1286 mGycm, Automated exposure control for dose reduction was used. DATE OF EXAM: 09/06/2023 3:11 PM COMPARISON: CT brain 12/28/2020. CLINICAL INDICATION:Female, 87 years old with history of ams; ams TECHNIQUE: Brain: Multiple axial CT images of the brain were obtained without IV contrast. Cspine: Axial CT images from the skull base to the inferior aspect of T2 we obtained without intraven ous contrast. Coronal and sagittal reformatted images were also reviewed. FINDINGS: Brain: Extra-axial spaces: No abnormal extra-axial fluid collections. Ventricular system: Within normal limits Cerebral parenchyma: Cerebral atrophy. No acute intraparenchymal hemorrhage or mass effect. The ramírez -white junction is well differentiated. Scattered hypoattenuating areas are seen within the white mat ter. Cerebellum: Unremarkable. Mass effect: No evidence of midline shift. Intracranial vasculature: Atherosclerotic calcifications of the intracranial vessels. Soft tissues: Normal. Calvarium/osseous structures: No depressed skull fracture. Paranasal sinuses and mastoid air cells: Clear. Visualized orbits: Bilateral aphakia Cervical spine: Fracture: None. Osseous structures: Multilevel degenerative disc disease changes with endplate spurring and disc oste ophyte complex's. Vertebral alignment: Within normal limits. Spinal canal/Neural Foramina: Disc osteophyte complexes at C4-C5, C5-C6, C6-C7 with at least mild spi nal canal stenosis. Facet joint uncovertebral joint arthropathy scattered throughout the cervical spi ne with varying degrees of neural foraminal stenosis. Neck soft tissues: Prevertebral soft tissues are within normal limits. Other: The airway is patent. The lung apices are clear. Slight asymmetric enlargement of the left thy roid lobe in relation to the right. Macrocalcification within the right thyroid lobe. This can be fur ther evaluated with thyroid ultrasound as clinically indicated. IMPRESSION: 1. No acute intracranial process. 2. Nonspecific white matter changes, likely secondary to chronic small vessel ischemic disease. 3. No evidence of cervical spine fracture. 4. Mild multilevel degenerative disc disease.
[2023-09-06 16:36] VITALS: BP 139/75; PULSE 56; RESP 16
== END 2023-09-06 16:20 | disposition home or self-care (01) ==
LOC: EC 12:58
DX: F03.90 Unspecified dementia, unspecified severity, without behavioral disturbance, psychotic disturbance, mood disturbance, and anxiety (principal); T42.4X5A Adverse effect of benzodiazepines, initial encounter; R00.1 Bradycardia, unspecified; I10 Essential (primary) hypertension; E07.9 Disorder of thyroid, unspecified; Z79.890 Hormone replacement therapy
CPT/HCPCS: 36415; 70450; 72125; 80053; 81003; 84484; 85025; 93005; 99285

== ENCOUNTER 2023-11-24 15:59 | Emergency (ER) | payer MEDICARE ==
[2023-11-24 16:19] VITALS: PULSE 78; TEMP 97.7
--- NOTE | 2023-11-24 16:32 | ED ---
Altered Mental Status HPI - General Chief Complaint: Altered Mental Status Stated Complaint: AMS Time Seen by Provider: 11/24/23 16:10 Source: EMS, RN notes reviewed, old records reviewed Mode of arrival: EMS Limitations: no limitations - History of Present Illness Initial Comments: This is a 88-year-old female to the ER for evaluation patient [facility] for evaluation of altered mental status. Patient is a significant poor historian and presents today for evaluation regarding altered mental status. Patient has no complaints here in the ER MD Complaint: altered mental status, confusion, decreased responsiveness, weakness -: unknown Severity: moderate Consistency of Symptoms: waxing and waning, getting worse Context: history of similar presentation Associated Symptoms: denies other symptoms Treatments Prior to Arrival: IV fluid, oxygen - Related Data Home Medications Medication Instructions Recorded Confirmed Ezetimibe [Zetia] 10 mg PO DAILY@0800 01/17/17 11/24/23 Fenofibrate [Lofibra] 54 mg PO DAILY@0800 01/17/17 11/24/23 Levothyroxine Sodium 88 mcg PO DAILY@0800 12/28/20 11/24/23 Acetaminophen Tab [Tylenol Tab] 500 - 1,000 mg PO Q6H PRN 09/06/23 11/24/23 Diclofenac Sodium [Voltaren 1 applic TOPICAL QID PRN 09/06/23 11/24/23 Arthritis Pain 1% Gel] Multivitamins, Thera [Multivitamin 1 tab PO DAILY@0800 09/06/23 11/24/23 (formulary)] Venlafaxine HCl ER [Effexor Xr] 37.5 mg PO DAILY@0800 09/06/23 11/24/23 ALPRAZolam [Xanax] 0.25 mg PO BID@0800,1400 11/24/23 11/24/23 Calcium Carbonate/Vitamin D3 1 tab PO DAILY@0800 11/24/23 11/24/23 [Calcium 600-Vit D3 10 mcg (400 Iu)] Allergies Allergy/AdvReac Type Severity Reaction Status Date / Time midazolam [From Versed] Allergy Vomiting Verified 11/24/23 16:41 cortisone AdvReac Vomiting Verified 11/24/23 16:41 meperidine [From Demerol] AdvReac Vomiting Verified 11/24/23 16:41 nitrofurantoin AdvReac Unknown Verified 11/24/23 16:41 [From Macrobid] Review of Systems ROS Statement: Those systems with pertinent positive or pertinent negative responses have been documented in the HPI. ROS Other: All systems not noted in ROS Statement are negative. Past Medical History Past Medical History: Dementia, Hypertension, Thyroid Disorder Additional Past Medical History / Comment(s): Pt denies any other medical history at this time. History of Any Multi-Drug Resistant Organisms: None Reported Additional Past Surgical History / Comment(s): eye surgery Past Anesthesia/Blood Transfusion Reactions: No Reported Reaction Past Psychological History: No Psychological Hx Reported Smoking Status: Never smoker Past Alcohol Use History: None Reported Past Drug Use History: None Reported General Exam Limitations: altered mental status General appearance: alert, in no apparent distress Head exam: Present: atraumatic, normocephalic, normal inspection Eye exam: Present: normal appearance, PERRL, EOMI. Absent: scleral icterus, conjunctival injection, periorbital swelling ENT exam: Present: normal exam, mucous membranes moist Neck exam: Present: normal inspection. Absent: tenderness, meningismus, lymphadenopathy Respiratory exam: Present: normal lung sounds bilaterally. Absent: respiratory distress, wheezes, rales, rhonchi, stridor Cardiovascular Exam: Present: regular rate, normal rhythm, normal heart sounds. Absent: systolic murmur, diastolic murmur, rubs, gallop, clicks GI/Abdominal exam: Present: soft, normal bowel sounds. Absent: distended, tenderness, guarding, rebound, rigid Extremities exam: Present: normal inspection, full ROM, normal capillary refill. Absent: tenderness, pedal edema, joint swelling, calf tenderness Back exam: Present: normal inspection Neurological exam: Present: alert, oriented X3, CN II-XII intact Psychiatric exam: Present: normal affect, normal mood Skin exam: Present: warm, dry, intact, normal color. Absent: rash Course Vital Signs 11/24/23 11/24/23 16:02 19:43 Temperature 97.7 F Pulse Rate 78 78 Respiratory 18 16 Rate Blood Pressure 119/61 146/78 O2 Sat by Pulse 100 96 Oximetry - Reevaluation(s) Reevaluation #1: 11/24/23 17:00 Medical records reviewed Reevaluation #2: 11/24/23 17:00 Patient symptoms unchanged, remains without complaint Reevaluation #3: 11/24/23 17:01 Patient informed of results questions answered Reevaluation #4: Was pt. sent in by a medical professional or institution (, MAR, MANAGER TRADE, urgent care, hospital, or residential...) When possible be specific @ -no Did you speak to anyone other than the patient for history (EMS, parent, family, police, friend...)? What history was obtained from this source @ -no Did you review nursing and triage notes (agree or disagree)? Why? @ -agree Are old charts reviewed (outside hosp., previous admission, EMS record, old EKG, old radiological studies, urgent care reports/EKG's, residential records)? Report findings @ -yes Differential Diagnosis (chest pain, altered mental status, abdominal pain women, abdominal pain men, vaginal bleeding, weakness, fever, dyspnea, syncope, headache, dizziness, GI bleed, back pain, seizure, CVA, palpatations, mental health, musculoskeletal)? @ -prior EKG interpreted by me (3pts min.). @ -yes X-rays interpreted by me (1pt min.). @ -yes negative for acute disease CT interpreted by me (1pt min.). @ -Yes negative for acute disease U/S interpreted by me (1pt. min.). @ -no What testing was considered but not performed or refused? (CT, X-rays, U/S, labs)? Why? @ -none What meds were considered but not given or refused? Why? @ -none Did you discuss the management of the patient with other professionals (professionals i.e. MAR Sampson, MANAGER TRADE, lab, RT, psych nurse, social media analyst, outreach team member, teacher, production officer, family caseworker)? Give summary @ -no Was smoking cessation discussed for >3mins.? @ -no Was critical care preformed (if so, how long)? @ -no Were there social determinants of health that impacted care today? How? (Homelessness, low income, unemployed, alcoholism, drug addiction, transportation, low edu. Level, literacy, decrease access to med. care, correction, rehab)? @ -none Was there de-escalation of care discussed even if they declined (Discuss DNR or withdrawal of care, Hospice)? DNR status @ -no What co-morbidities impacted this encounter? (DM, HTN, Smoking, COPD, CAD, Cancer, CVA, ARF, Chemo, Hep., AIDS, mental health diagnosis, sleep apnea, morb id obesity)? @ -none Was patient admitted / discharged? Hospital course, mention meds given and rou te, prescriptions, significant lab abnormalities, going to OR and other pertinent info. @ - 88 female with altered mental status. Patient has no acute findings here in the ER normal imaging normal lab testing normal urinalysis. Patient can be discharged home Discharge Undiagnosed new problem with uncertain prognosis? @ -no Drug Therapy requiring intensive monitoring for toxicity (Heparin, Nitro, Insulin, Cardizem)? @ -no Were any procedures done? @ -no Diagnosis/symptom? @ -Altered mental status Acute, or Chronic, or Acute on Chronic? @ -Acute Uncomplicated (without systemic symptoms) or Complicated (systemic symptoms)? @ -Complicated Side effects of treatment? @ -no Exacerbation, Progression, or Severe Exacerbation? @ -exacerbation Poses a threat to life or bodily function? How? (Chest pain, [place], [place], pneumonia, PE, COPD, DKA, ARF, appy, cholecystitis, CVA, Diverticulitis, Homicidal, Suicidal, threat to staff... and all critical care pts) @ -yes with significant extremes of age Reevaluation #5: Differential Altered Mental Status: Hypoglycemia, DKA, hypercapnia, ETOH, overdose, CO poisoning, trauma, myxedema coma, HTN encephalopathy, infection, encephalitis, psychosis, intercranial hemorrhage, hepatic encephalopathy, meningitis, CVA, this is not meant to be an all-inclusive list Medical Decision Making - Medical Decision Making 88 female with altered mental status. Patient has no acute findings here in the ER normal imaging normal lab testing normal urinalysis. Patient can be di scharged home - Lab Data Result diagrams: 11/24/23 16:51 11/24/23 16:51 Lab Results 11/24/23 11/24/23 11/24/23 Range/Units 16:51 16:51 16:51 WBC 7.3 (3.8-10.6) k/uL RBC 4.54 (3.80-5.40) m/uL Hgb 13.8 (11.4-16.0) gm/dL Hct 41.6 (34.0-46.0) % MCV 91.5 (80.0-100.0) fL MCH 30.4 (25.0-35.0) pg MCHC 33.2 (31.0-37.0) g/dL RDW 13.3 (11.5-15.5) % Plt Count 258 (150-450) k/uL MPV 8.0 Neutrophils % 59 % Lymphocytes % 29 % Monocytes % 8 % Eosinophils % 2 % Basophils % 0 % Neutrophils # 4.3 (1.3-7.7) k/uL Lymphocytes # 2.1 (1.0-4.8) k/uL Monocytes # 0.6 (0-1.0) k/uL Eosinophils # 0.1 (0-0.7) k/uL Basophils # 0.0 (0-0.2) k/uL PT 10.5 (10.0-12.5) sec INR 0.9 (<1.2) APTT 23.4 (22.0-30.0) sec Sodium (137-145) mmol/L Potassium (3.5-5.1) mmol/L Chloride (98-107) mmol/L Carbon Dioxide (22-30) mmol/L Anion Gap mmol/L BUN (7-17) mg/dL Creatinine (0.52-1.04) mg/dL Est GFR (CKD-EPI)AfAm (>60 ml/min/1.73 sqM) Est GFR (CKD-EPI)NonAf (>60 ml/min/1.73 sqM) Glucose (74-99) mg/dL Calcium (8.4-10.2) mg/dL Total Bilirubin (0.2-1.3) mg/dL AST (14-36) U/L ALT (4-34) U/L Alkaline Phosphatase (38-126) U/L Ammonia (<30) umol/L Troponin I (0.000-0.034) ng/mL Total Protein (6.3-8.2) g/dL Albumin (3.5-5.0) g/dL Urine Color Urine Appearance (Clear) Urine pH (5.0-8.0) Ur Specific [place] (1.001-1.035) Urine Protein (Negative) Urine Glucose (UA) (Negative) Urine Ketones (Negative) Urine Blood (Negative) Urine Nitrite (Negative) Urine Bilirubin (Negative) Urine Urobilinogen (<2.0) mg/dL Ur Leukocyte Esterase (Negative) Urine Opiates Screen Not Detected (NotDetected) Ur Oxycodone Screen Not Detected (NotDetected) Urine Methadone Screen Not Detected (NotDetected) Ur Barbiturates Screen Not Detected (NotDetected) U Tricyclic Antidepress Not Detected (NotDetected) Ur Phencyclidine Scrn Not Detected (NotDetected) Ur Amphetamines Screen Not Detected (NotDetected) U Methamphetamines Scrn Not Detected (NotDetected) U Benzodiazepines Scrn Detected H (NotDetected) Urine Cocaine Screen Not Detected (NotDetected) U Marijuana (THC) Screen Not Detected (NotDetected) 11/24/23 11/24/23 11/24/23 Range/Units 16:51 16:51 16:51 WBC (3.8-10.6) k/uL RBC (3.80-5.40) m/uL Hgb (11.4-16.0) gm/dL Hct (34.0-46.0) % MCV (80.0-100.0) fL MCH (25.0-35.0) pg MCHC (31.0-37.0) g/dL RDW (11.5-15.5) % Plt Count (150-450) k/uL MPV Neutrophils % % Lymphocytes % % Monocytes % % Eosinophils % % Basophils % % Neutrophils # (1.3-7.7) k/uL Lymphocytes # (1.0-4.8) k/uL Monocytes # (0-1.0) k/uL Eosinophils # (0-0.7) k/uL Basophils # (0-0.2) k/uL PT (10.0-12.5) sec INR (<1.2) APTT (22.0-30.0) sec Sodium 141 (137-145) mmol/L Potassium 3.9 (3.5-5.1) mmol/L Chloride 105 (98-107) mmol/L Carbon Dioxide 28 (22-30) mmol/L Anion Gap 8 mmol/L BUN 22 H (7-17) mg/dL Creatinine 0.80 (0.52-1.04) mg/dL Est GFR (CKD-EPI)AfAm 77 (>60 ml/min/1.73 sqM) Est GFR (CKD-EPI)NonAf 67 (>60 ml/min/1.73 sqM) Glucose 88 (74-99) mg/dL Calcium 9.4 (8.4-10.2) mg/dL Total Bilirubin 0.5 (0.2-1.3) mg/dL AST 26 (14-36) U/L ALT 16 (4-34) U/L Alkaline Phosphatase 66 (38-126) U/L Ammonia (<30) umol/L Troponin I <0.012 (0.000-0.034) ng/mL Total Protein 6.6 (6.3-8.2) g/dL Albumin 3.9 (3.5-5.0) g/dL Urine Color Colorless Urine Appearance Clear (Clear) Urine pH 7.5 (5.0-8.0) Ur Specific [place] 1.005 (1.001-1.035) Urine Protein Negative (Negative) Urine Glucose (UA) Negative (Negative) Urine Ketones Negative (Negative) Urine Blood Negative (Negative) Urine Nitrite Negative (Negative) Urine Bilirubin Negative (Negative) Urine Urobilinogen <2.0 (<2.0) mg/dL Ur Leukocyte Esterase Negative (Negative) Urine Opiates Screen (NotDetected) Ur Oxycodone Screen (NotDetected) Urine Methadone Screen (NotDetected) Ur Barbiturates Screen (NotDetected) U Tricyclic Antidepress (NotDetected) Ur Phencyclidine Scrn (NotDetected) Ur Amphetamines Screen (NotDetected) U Methamphetamines Scrn (NotDetected) U Benzodiazepines Scrn (NotDetected) Urine Cocaine Screen (NotDetected) U Marijuana (THC) Screen (NotDetected) 11/24/23 Range/Units 16:51 WBC (3.8-10.6) k/uL RBC (3.80-5.40) m/uL Hgb (11.4-16.0) gm/dL Hct (34.0-46.0) % MCV (80.0-100.0) fL MCH (25.0-35.0) pg MCHC (31.0-37.0) g/dL RDW (11.5-15.5) % Plt Count (150-450) k/uL MPV Neutrophils % % Lymphocytes % % Monocytes % % Eosinophils % % Basophils % % Neutrophils # (1.3-7.7) k/uL Lymphocytes # (1.0-4.8) k/uL Monocytes # (0-1.0) k/uL Eosinophils # (0-0.7) k/uL Basophils # (0-0.2) k/uL PT (10.0-12.5) sec INR (<1.2) APTT (22.0-30.0) sec Sodium (137-145) mmol/L Potassium (3.5-5.1) mmol/L Chloride (98-107) mmol/L Carbon Dioxide (22-30) mmol/L Anion Gap mmol/L BUN (7-17) mg/dL Creatinine (0.52-1.04) mg/dL Est GFR (CKD-EPI)AfAm (>60 ml/min/1.73 sqM) Est GFR (CKD-EPI)NonAf (>60 ml/min/1.73 sqM) Glucose (74-99) mg/dL Calcium (8.4-10.2) mg/dL Total Bilirubin (0.2-1.3) mg/dL AST (14-36) U/L ALT (4-34) U/L Alkaline Phosphatase (38-126) U/L Ammonia <9 (<30) umol/L Troponin I (0.000-0.034) ng/mL Total Protein (6.3-8.2) g/dL Albumin (3.5-5.0) g/dL Urine Color Urine Appearance (Clear) Urine pH (5.0-8.0) Ur Specific [place] (1.001-1.035) Urine Protein (Negative) Urine Glucose (UA) (Negative) Urine Ketones (Negative) Urine Blood (Negative) Urine Nitrite (Negative) Urine Bilirubin (Negative) Urine Urobilinogen (<2.0) mg/dL Ur Leukocyte Esterase (Negative) Urine Opiates Screen (NotDetected) Ur Oxycodone Screen (NotDetected) Urine Methadone Screen (NotDetected) Ur Barbiturates Screen (NotDetected) U Tricyclic Antidepress (NotDetected) Ur Phencyclidine Scrn (NotDetected) Ur Amphetamines Screen (NotDetected) U Methamphetamines Scrn (NotDetected) U Benzodiazepines Scrn (NotDetected) Urine Cocaine Screen (NotDetected) U Marijuana (THC) Screen (NotDetected) - EKG Data -: EKG Interpreted by Me (History of sinus 78 IL 149 QRS 85 QTc 403) - Radiology Data Radiology results: report reviewed (CT brain is negative for acute disease, chest x-ray is negative for acute disease), image reviewed Disposition Clinical Impression: Altered mental status Disposition: HOME SELF-CARE Condition: Fair Instructions (If sedation given, give patient instructions): Altered Mental Status (ED) Is patient prescribed a controlled substance at d/c from ED?: No Referrals: None,Stated [Primary Care Provider] - 1-2 days Time of Disposition: 19:20
--- NOTE | 2023-11-24 17:21 | XR ---
EXAMINATION TYPE: XR chest 1V portable DATE OF EXAM: 11/24/2023 Comparison: 12/29/2021 Clinical History: 88-year-old female confusion, altered mental status Findings: Heart normal size. Aorta within normal limits. Mild perihilar bronchial cuffing. No consolidation or pleural effusion. Impression: Mild peribronchial cuffing could reflect bronchitis or asthma. No focal infiltrate seen.
--- NOTE | 2023-11-24 18:02 | CT ---
EXAMINATION TYPE: CT brain wo con DATE OF EXAM: 11/24/2023 COMPARISON: 09/06/2023 HISTORY: 88-year-old female with AMS, confusion TECHNIQUE: Examination was done in axial plane without intravenous contrast. Coronal and sagittal r econstructions performed. CT DLP: 1138.4 mGycm Automated exposure control for dose reduction was used. FINDINGS: There is no evidence of acute intracranial hemorrhage, acute ischemic changes, mass, mass-effect, or extra-axial fluid collection. There is no effacement of cerebral sulci or basal subarachnoid cister ns. There is no hydrocephalus. There is no midline shift. Angel-white matter distinction is preserv ed. Mild volume loss overlying the bilateral cerebral convexities. There is moderate patchy and confluenc e white matter hypodensity in both cerebral hemispheres Extensive ethmoid and maxillary sinus opacification. Air-fluid levels in both maxillary sinuses and l eft sphenoid sinus as well. Mastoid air cells appear clear. Orbits and globes are intact. IMPRESSION: 1. No acute intracranial abnormality seen. 2. Extensive new ethmoid, maxillary, and left sphenoid sinus disease with air-fluid levels. Correlate for acute sinusitis.
[2023-11-24] MEDS: SODIUM CHLORIDE 0.9% 1,000 ML IV ONE (18:15)
[2023-11-24 18:30] LABS: Basophils % (A) 0 %; Eosinophils # (A) 0.1 k/uL (0-0.7); Eosinophils % (A) 2 %; HCT 41.6 % (34.0-46.0); HGB 13.8 gm/dL (11.4-16.0); Lymphocytes # (A) 2.1 k/uL (1.0-4.8); Lymphocytes % (A) 29 %; MCH 30.4 pg (25.0-35.0); MCHC 33.2 g/dL (31.0-37.0); MCV 91.5 fL (80.0-100.0); Monocytes # (A) 0.6 k/uL (0-1.0); Monocytes % (A) 8 %; Neutrophils # (A) 4.3 k/uL (1.3-7.7); Neutrophils % (A) 59 %; Platelet Count 258 k/uL (150-450); RBC 4.54 m/uL (3.80-5.40); RDW 13.3 % (11.5-15.5); WBC 7.3 k/uL (3.8-10.6)
[2023-11-24 18:32] LABS: INR 0.9 (<1.2); Partial Thromboplastin Time 23.4 sec (22.0-30.0); Prothrombin Time 10.5 sec (10.0-12.5)
[2023-11-24 18:42] LABS: Appearance,Urine Clear (Clear); Bilirubin,Urine Negative (Negative); Blood,Urine Negative (Negative); Color,Urine Colorless; Glucose,Urine (UA) Negative (Negative); Ketones,Urine Negative (Negative); Leukocyte Esterase,Urine Negative (Negative); Nitrite,Urine Negative (Negative); PH, Urine 7.5 (5.0-8.0); Protein,Urine Negative (Negative); Specific Gravity,Urine 1.005 (1.001-1.035); Urobilinogen,Urine <2.0 mg/dL (<2.0)
[2023-11-24 18:44] LABS: ALT 16 U/L (4-34); AST 26 U/L (14-36); African American GFR (CKD) 77 (>60 ml/min/1.73 sqM); Albumin 3.9 g/dL (3.5-5.0); Alkaline Phosphatase 66 U/L (38-126); Anion Gap 8 mmol/L; Blood Urea Nitrogen 22 mg/dL (7-17); Calcium 9.4 mg/dL (8.4-10.2); Carbon Dioxide 28 mmol/L (22-30); Chloride 105 mmol/L (98-107); Glucose 88 mg/dL (74-99); Non-African American GFR(CKD) 67 (>60 ml/min/1.73 sqM); Potassium 3.9 mmol/L (3.5-5.1); Sodium 141 mmol/L (137-145); Total Bilirubin 0.5 mg/dL (0.2-1.3); Total Protein 6.6 g/dL (6.3-8.2)
[2023-11-24 18:50] LABS: Amphetamine Screen,Urine Not Detected (NotDetected); Barbiturate Screen,Urine Not Detected (NotDetected); Benzodiazepines Screen,Urine Detected (NotDetected); Cocaine Screen,Urine Not Detected (NotDetected); Methadone Screen, Urine Not Detected (NotDetected); Opiate Screen,Urine Not Detected (NotDetected); Oxycodone Screen, Urine Not Detected (NotDetected); Phencyclidine Screen,Urine Not Detected (NotDetected); Tricyclic Antidepressant,Urine Not Detected (NotDetected); Urn Cannabinoid Scrn Not Detected (NotDetected)
[2023-11-24 20:07] VITALS: BP 146/78; RESP 16
== END 2023-11-24 20:01 | disposition home or self-care (01) ==
LOC: EC 15:59
DX: R41.82 Altered mental status, unspecified (principal); Z88.1 Allergy status to other antibiotic agents; Z88.5 Allergy status to narcotic agent; Z88.8 Allergy status to other drugs, medicaments and biological substances
CPT/HCPCS: 36415; 70450; 71045; 80053; 80306; 81003; 82140; 84484; 85025; 85610; 85730; 93005; 96360; 96361; 99285

== ENCOUNTER 2024-01-11 10:24 | Emergency (ER) | payer MEDICARE ==
[2024-01-11 10:58] VITALS: RESP 18; TEMP 97.5
[2024-01-11] MEDS: SODIUM CHLORIDE 0.9% 1,000 ML IV ONE (11:10)
[2024-01-11] MEDS: LORazepam 2 MG/ML INJ IV STA (11:10)
[2024-01-11] MEDS: ONDANSETRON 4 MG/2 ML VIAL IVP STA (11:10)
[2024-01-11 11:43] LABS: Lactic Acid, Venous 1.4 mmol/L (0.7-2.0)
--- NOTE | 2024-01-11 11:47 | CT ---
EXAMINATION TYPE: CT brain wo con DATE OF EXAM: 01/11/2024 COMPARISON: 11/24/2023 HISTORY: PAIN AFTER FALLS. DEMENTIA CT DLP: 1396.4 mGycm Automated exposure control for dose reduction was used. FINDINGS: Mild degenerative change. Hypoattenuation in the white matter most compatible with remote microvascul ar ischemia. Intracranial atherosclerotic changes. Orbits are symmetric. Sinuses are clear. Calvarium intact. IMPRESSION: DEGENERATIVE AND REMOTE ISCHEMIC WHITE MATTER CHANGES. FINDINGS SIMILAR TO PRIOR EXAM.
--- NOTE | 2024-01-11 11:49 | CT ---
EXAMINATION TYPE: CT facial bones wo con DATE OF EXAM: 01/11/2024 COMPARISON: None HISTORY: PAIN AFTER FALLS. DEMENTIA CT DLP: 1396.4 mGycm Automated exposure control for dose reduction was used. TECHNIQUE: CT scan of the sinuses is performed without contrast, axial images are obtained, coronal r eformatted images are also reviewed. FINDINGS: The paranasal sinuses including the frontal, ethmoid, sphenoid, and maxillary sinuses bila terally are well-aerated without abnormal opacification. The ostiomeatal complex is patent bilateral ly on the coronal images. Visualized portion of mastoid air cells show no abnormal opacification. The globes are intact bilate rally. The extraocular muscles are normal and symmetric. The facial bones are intact and there is no fracture. IMPRESSION: No evidence of nasal bone trauma.
--- NOTE | 2024-01-11 11:59 | XR ---
EXAMINATION TYPE: XR pelvis AP view DATE OF EXAM: 01/11/2024 CLINICAL HISTORY: pain TECHNIQUE: Single view the pelvis is submitted. FINDINGS: No evidence for fracture, dislocation or bony lesion. Joint spaces are well-preserved. S I joints appear symmetric. IMPRESSION: 1. No acute fracture or dislocation seen. ICD 10 NO FRACTURE, INITIAL EVALUATION
[2024-01-11 13:10] LABS: Basophils % (A) 0 %; Eosinophils # (A) 0.2 k/uL (0-0.7); Eosinophils % (A) 4 %; HCT 44.3 % (34.0-46.0); HGB 13.9 gm/dL (11.4-16.0); Lymphocytes # (A) 1.8 k/uL (1.0-4.8); Lymphocytes % (A) 28 %; MCH 29.8 pg (25.0-35.0); MCHC 31.3 g/dL (31.0-37.0); Mean Platelet Volume 7.4; Monocytes # (A) 0.3 k/uL (0-1.0); Monocytes % (A) 5 %; Neutrophils # (A) 4.1 k/uL (1.3-7.7); Neutrophils % (A) 63 %; Platelet Count 214 k/uL (150-450); RBC 4.67 m/uL (3.80-5.40); RDW 13.1 % (11.5-15.5); WBC 6.6 k/uL (3.8-10.6)
--- NOTE | 2024-01-11 13:10 | XR ---
EXAMINATION TYPE: XR chest 2V DATE OF EXAM: 01/11/2024 COMPARISON: NONE TECHNIQUE: PA and lateral views submitted. HISTORY: Altered mental status FINDINGS: The lungs are clear and there is no pneumothorax, pleural effusion, or focal pneumonia. Heart size normal and no overt failure. Osseous structures demonstrate hypertrophic and degenerative changes of the spine. Diffuse osteopenia. Arthropathy of the shoulders. Limited inspiration with ectasia of the aorta. IMPRESSION: 1. No acute process.
[2024-01-11 13:20] LABS: Partial Thromboplastin Time 23.6 sec (22.0-30.0); Prothrombin Time 10.9 sec (10.0-12.5)
[2024-01-11 13:39] LABS: ALT 12 U/L (4-34); AST 24 U/L (14-36); African American GFR (CKD) >90 (>60 ml/min/1.73 sqM); Albumin 3.9 g/dL (3.5-5.0); Alkaline Phosphatase 49 U/L (38-126); Anion Gap 3 mmol/L; Blood Urea Nitrogen 19 mg/dL (7-17); Carbon Dioxide 28 mmol/L (22-30); Chloride 110 mmol/L (98-107); Glucose 83 mg/dL (74-99); Non-African American GFR(CKD) 79 (>60 ml/min/1.73 sqM); Potassium 3.8 mmol/L (3.5-5.1); Sodium 141 mmol/L (137-145); Total Bilirubin 0.6 mg/dL (0.2-1.3); Total Protein 6.5 g/dL (6.3-8.2)
[2024-01-11 14:10] VITALS: BP 128/61; PULSE 57
--- NOTE | 2024-01-11 14:12 | ED ---
General Adult HPI - General Chief complaint: Altered Mental Status Stated complaint: altered mental state Time Seen by Provider: 01/11/24 10:52 Source: patient, family, EMS, RN notes reviewed, old records reviewed Mode of arrival: EMS Limitations: altered mental status - History of Present Illness Initial comments: Patient is a 88-year-old female presents emergency department for altered mental status. Patient has a history of anxiety. Fell few days ago after nursing facility. Has a contusion on her forehead. She has been acting more anxious lately and slightly more confused. Does have a history of baseline dementia. Has a history of typical confusion but is usually oriented to self. She seems very anxious, keeps spitting up. She is not on blood thinners. Was transferred here for further evaluation. Patient unable to provide any form of history at this time. She keeps declining that she fell but does endorse that her forehead hurts. - Related Data Home Medications Medication Instructions Recorded Confirmed Ezetimibe [Zetia] 10 mg PO DAILY@0800 01/17/17 01/11/24 Fenofibrate [Lofibra] 54 mg PO DAILY@0801/17/17 01/11/24 Levothyroxine Sodium 88 mcg PO DAILY@0800 12/28/20 01/11/24 Diclofenac Sodium [Voltaren 1 applic TOPICAL QID PRN 09/06/23 01/11/24 Arthritis Pain 1% Gel] Multivitamins, Thera [Multivitamin 1 tab PO DAILY@0800 09/06/23 01/11/24 (formulary)] Venlafaxine HCl ER [Effexor Xr] 37.5 mg PO DAILY@0800 09/06/23 01/11/24 ALPRAZolam [Xanax] 0.25 mg PO BID@0800,1400 11/24/23 01/11/24 Calcium Carbonate/Vitamin D3 1 tab PO DAILY@0800 11/24/23 01/11/24 [Calcium 600-Vit D3 10 mcg (400 Iu)] Acetaminophen [Tylenol Arthritis] 650 mg PO Q6H PRN 01/11/24 01/11/24 Cholecalciferol [Vitamin D3 (25 50 mcg PO DAILY 01/11/24 01/11/24 Mcg = 1000 Iu)] Cyanocobalamin (Vitamin B-12) 1,000 mcg PO DAILY@0800 01/11/24 01/11/24 [Vitamin B-12] risperiDONE [RisperDAL M-Tab] 0.5 mg PO BID@08,199901/11/24 01/11/24 Allergies Allergy/AdvReac Type Severity Reaction Status Date / Time midazolam [From Versed] Allergy Vomiting Verified 01/11/24 12:36 cortisone AdvReac Vomiting Verified 01/11/24 12:36 meperidine [From Demerol] AdvReac Vomiting Verified 01/11/24 12:36 nitrofurantoin AdvReac Unknown Verified 01/11/24 12:36 [From Macrobid] Review of Systems ROS Statement: Those systems with pertinent positive or pertinent negative responses have been documented in the HPI. Review of Systems: CONST: Denies fever EYES: Denies blurry vision ENT: Denies nasal congestion C/V: Denies Chest pain RESP: Denies shortness of breath GI: Denies abdominal pain : Denies dysuria SKIN: Denies rash. MSK: Denies joint pain. NEURO: Denies headache ROS Other: All systems not noted in ROS Statement are negative. Past Medical History Past Medical History: Dementia, Hypertension, Thyroid Disorder Additional Past Medical History / Comment(s): Pt denies any other medical history at this time. History of Any Multi-Drug Resistant Organisms: None Reported Additional Past Surgical History / Comment(s): eye surgery Past Anesthesia/Blood Transfusion Reactions: No Reported Reaction Past Psychological History: No Psychological Hx Reported Smoking Status: Never smoker Past Alcohol Use History: None Reported Past Drug Use History: None Reported General Exam - General Exam Comments Initial Comments: General: Appears anxious. HEAD: Left forehead contusion. Negative Bhatt sign. Negative raccoon eyes. EYES: PERRLA, EOMI, conjunctiva normal, no discharge. Pupils are 3 mm and equal bilaterally. ENT: Hearing grossly intact, normal oropharynx. RESPIRATORY: Clear breath sounds bilaterally. No wheezes, rales, or rhonchi. C/V: Regular rate and rhythm. S1 and S2 auscultated, no edema, peripheral pulses 2+ and intact throughout ABD: Abd is soft, nontender, nondistended EXT: Normal range of motion, no obvious deformity SKIN: No rashes or lesions observed on exposed skin. NEURO: Alert and oriented x 1. No obvious focal deficits. GCS of 15. Limitations: altered mental status Course Vital Signs 01/11/24 01/11/24 10:54 14:00 Temperature 97.5 F L Pulse Rate 78 57 L Respiratory 18 18 Rate Blood Pressure 152/94 128/61 O2 Sat by Pulse 97 96 Oximetry Medical Decision Making - Medical Decision Making Was pt. sent in by a medical professional or institution (, PA, CONTRACT FORESTER, urgent care, hospital, or skilled nursing...) When possible be specific @ -No Did you speak to anyone other than the patient for history (EMS, parent, family, police, friend...)? What history was obtained from this source @ -No Did you review nursing and triage notes (agree or disagree)? Why? @ -I reviewed and agree with nursing and triage notes Were old charts reviewed (outside hosp., previous admission, EMS record, old EKG, old radiological studies, urgent care reports/EKG's, skilled nursing records)? Report findings @ -Prior charts reviewed. I did evaluate the patient previously and she is more confused than her typical baseline but also appears more anxious which is similar to how she has presented in the past. Also reviewed EKG from prior visits including November 20 with no obvious significant change. Differential Diagnosis (chest pain, altered mental status, abdominal pain women, abdominal pain men, vaginal bleeding, weakness, fever, dyspnea, syncope, headache, dizziness, GI bleed, back pain, seizure, CVA, palpatations, mental health, musculoskeletal)? @ -Differential Altered Mental Status: Hypoglycemia, DKA, hypercapnia, ETOH, overdose, CO poisoning, trauma, myxedema coma, HTN encephalopathy, infection, encephalitis, psychosis, intercranial hemorrhage, hepatic encephalopathy, meningitis, CVA, this is not meant to be an all-inclusive list EKG interpreted by me (3pts min.). @ -As above X-rays interpreted by me (1pt min.). @ -Chest and pelvis x-rays negative for any obvious acute traumatic injuries. CT interpreted by me (1pt min.). @ -CT brain and facial bones negative for any obvious traumatic injury. U/S interpreted by me (1pt. min.). @ -None done What testing was considered but not performed or refused? (CT, X-rays, U/S, labs)? Why? @ -None What meds were considered but not given or refused? Why? @ -None Did you discuss the management of the patient with other professionals (professionals i.e. , PA, CONTRACT FORESTER, lab, RT, psych nurse, director social, light bulb replacer, teacher, chief quality officer, corrections caseworker)? Give summary @ -No Was smoking cessation discussed for >3mins.? @ -No Was critical care preformed (if so, how long)? @ -No Were there social determinants of health that impacted care today? How? (Homelessness, low income, unemployed, alcoholism, drug addiction, transportation, low edu. Level, literacy, decrease access to med. care, skilled nursing, rehab)? @ -No Was there de-escalation of care discussed even if they declined (Discuss DNR or withdrawal of care, Hospice)? DNR status @ -No What co-morbidities impacted this encounter? (DM, HTN, Smoking, COPD, CAD, Cancer, CVA, ARF, Chemo, Hep., AIDS, mental health diagnosis, sleep apnea, morbid obesity)? @ -Dementia Was patient admitted / discharged? Hospital course, mention meds given and route, prescriptions, significant lab abnormalities, going to OR and other pertinent info. @ -Patient presents with complaint of altered mental status as well as anxiety. She was given a small dose of IV Ativan as well as IV fluids. She had a fall few days ago with change in mentation and therefore we will obtain CT imaging of the brain and face as well as x-rays. Could be related to anxiety. We will continue to monitor closely. Vital signs within acceptable limits. Patient does have a history of dementia. Imaging returned unremarkable for any obvious traumatic injury or finding. Chronic degenerative changes seen on the CT brain. Patient's laboratory studies are also unremarkable. Urine is still pending at this time. On reevaluation, patient is resting comfortably. She appears to be more at her typical baseline which is calm and A and O x 1-2. I spoke with family members who are at bedside who agree with this assessment that she is back to baseline. We discussed her workup. We discussed waiting for urinalysis but as patient has no symptoms, they would like to leave at this time and I believe this is reasonable. They can workup the patient for UTI her facility. Patient's symptoms likely secondary to her anxiety and may be having a panic attack. Is difficult to ascertain the exact cause due to her history of dementia but with only treatment being on antianxiety medications, and patient improving following this, I do believe this is likely the cause. Family was in agreement with this assessment. She will be discharged back to her facility at this time. They were in agreement this plan. I instructed the patient to follow up with their PCP in the next 1-3 days. I explained that the patient should return to the emergency department if they experience any worsening symptoms. Strict return precautions were discussed with the patient. The patient expressed understanding of these instructions. I answered all questions that the patient had. The patient was discharged home in good condition with their prescriptions and follow up information. Undiagnosed new problem with uncertain prognosis? @ -No Drug Therapy requiring intensive monitoring for toxicity (Heparin, Nitro, Insulin, Cardizem)? @ -No Were any procedures done? @ -No Diagnosis/symptom? @ -Anxiety, dementia Acute, or Chronic, or Acute on Chronic? @ -Acute Uncomplicated (without systemic symptoms) or Complicated (systemic symptoms)? @ -Complicated Side effects of treatment? @ -No Exacerbation, Progression, or Severe Exacerbation? @ -No Poses a threat to life or bodily function? How? (Chest pain, [place], [place], pneumonia, PE, COPD, DKA, ARF, appy, cholecystitis, CVA, Diverticulitis, Homicidal, Suicidal, threat to staff... and all critical care pts) @ -No Diagnosis/symptom? @ -Forehead contusion Acute, or Chronic, or Acute on Chronic? @ -Acute Uncomplicated (without systemic symptoms) or Complicated (systemic symptoms)? @ -Uncomplicated Side effects of treatment? @ -None Exacerbation, Progression, or Severe Exacerbation] @ -No Poses a threat to life or bodily function? @ -Unlikely - Lab Data Result diagrams: 01/11/24 12:58 01/11/24 12:58 Lab Results 01/11/24 01/11/24 01/11/24 Range/Units 11:13 12:58 12:58 WBC (3.8-10.6) k/uL RBC (3.80-5.40) m/uL Hgb (11.4-16.0) gm/dL Hct (34.0-46.0) % MCV (80.0-100.0) fL MCH (25.0-35.0) pg MCHC (31.0-37.0) g/dL RDW (11.5-15.5) % Plt Count (150-450) k/uL MPV Neutrophils % % Lymphocytes % % Monocytes % % Eosinophils % % Basophils % % Neutrophils # (1.3-7.7) k/uL Lymphocytes # (1.0-4.8) k/uL Monocytes # (0-1.0) k/uL Eosinophils # (0-0.7) k/uL Basophils # (0-0.2) k/uL PT (10.0-12.5) sec INR (<1.2) APTT (22.0-30.0) sec Sodium 141 (137-145) mmol/L Potassium 3.8 (3.5-5.1) mmol/L Chloride 110 H (98-107) mmol/L Carbon Dioxide 28 (22-30) mmol/L Anion Gap 3 mmol/L BUN 19 H (7-17) mg/dL Creatinine 0.68 (0.52-1.04) mg/dL Est GFR (CKD-EPI)AfAm >90 (>60 ml/min/1.73 sqM) Est GFR (CKD-EPI)NonAf 79 (>60 ml/min/1.73 sqM) Glucose 83 (74-99) mg/dL Plasma Lactic Acid Bjorn 1.4 (0.7-2.0) mmol/L Calcium 10.0 (8.4-10.2) mg/dL Total Bilirubin 0.6 (0.2-1.3) mg/dL AST 24 (14-36) U/L ALT 12 (4-34) U/L Alkaline Phosphatase 49 (38-126) U/L Ammonia <9 (<30) umol/L Total Protein 6.5 (6.3-8.2) g/dL Albumin 3.9 (3.5-5.0) g/dL Influenza Type A (PCR) Not Detected (Not Detectd) Influenza Type B (PCR) Not Detected (Not Detectd) RSV (PCR) Not Detected (Not Detectd) SARS-CoV-2 (PCR) Not Detected (Not Detectd) 01/11/24 01/11/24 Range/Units 12:58 12:58 WBC 6.6 (3.8-10.6) k/uL RBC 4.67 (3.80-5.40) m/uL Hgb 13.9 (11.4-16.0) gm/dL Hct 44.3 (34.0-46.0) % MCV 95.0 (80.0-100.0) fL MCH 29.8 (25.0-35.0) pg MCHC 31.3 (31.0-37.0) g/dL RDW 13.1 (11.5-15.5) % Plt Count 214 (150-450) k/uL MPV 7.4 Neutrophils % 63 % Lymphocytes % 28 % Monocytes % 5 % Eosinophils % 4 % Basophils % 0 % Neutrophils # 4.1 (1.3-7.7) k/uL Lymphocytes # 1.8 (1.0-4.8) k/uL Monocytes # 0.3 (0-1.0) k/uL Eosinophils # 0.2 (0-0.7) k/uL Basophils # 0.0 (0-0.2) k/uL PT 10.9 (10.0-12.5) sec INR 1.0 (<1.2) APTT 23.6 (22.0-30.0) sec Sodium (137-145) mmol/L Potassium (3.5-5.1) mmol/L Chloride (98-107) mmol/L Carbon Dioxide (22-30) mmol/L Anion Gap mmol/L BUN (7-17) mg/dL Creatinine (0.52-1.04) mg/dL Est GFR (CKD-EPI)AfAm (>60 ml/min/1.73 sqM) Est GFR (CKD-EPI)NonAf (>60 ml/min/1.73 sqM) Glucose (74-99) mg/dL Plasma Lactic Acid Bjorn (0.7-2.0) mmol/L Calcium (8.4-10.2) mg/dL Total Bilirubin (0.2-1.3) mg/dL AST (14-36) U/L ALT (4-34) U/L Alkaline Phosphatase (38-126) U/L Ammonia (<30) umol/L Total Protein (6.3-8.2) g/dL Albumin (3.5-5.0) g/dL Influenza Type A (PCR) (Not Detectd) Influenza Type B (PCR) (Not Detectd) RSV (PCR) (Not Detectd) SARS-CoV-2 (PCR) (Not Detectd) - EKG Data -: EKG Interpreted by Me EKG Comments: 12-lead Electrocardiogram Interpretation Note EKG was reviewed and interpreted by myself. 12-lead ECG performed at 1047 is interpreted by me as revealing normal sinus rhythm at a rate of 71 beats per minute. Left axis deviation. QRS duration is 90 ms, QTc is 4 and 32 ms.. There were no ST or T wave abnormalities to suggest myocardial ischemia or injury. R wave progression across the precordium was satisfactory. By my interpretation this EKG is non-diagnostic for acute ischemia. Disposition Clinical Impression: Anxiety, Dementia, Forehead contusion Disposition: HOME SELF-CARE Condition: Good Instructions (If sedation given, give patient instructions): Anxiety (ED) Is patient prescribed a controlled substance at d/c from ED?: No Referrals: Jessica Jones [Primary Care Provider] - 1-2 days Time of Disposition: 14:11
== END 2024-01-11 14:49 | disposition home or self-care (01) ==
LOC: EC 10:24
DX: S00.83XA Contusion of other part of head, initial encounter (principal); F03.94 Unspecified dementia, unspecified severity, with anxiety; I44.4 Left anterior fascicular block; Z11.52 Encounter for screening for COVID-19; Z88.8 Allergy status to other drugs, medicaments and biological substances; W19.XXXA Unspecified fall, initial encounter
CPT/HCPCS: 36415; 93005; 80053; 82140; 83605; 85025; 85610; 85730; 87636; 72170; 71046; 70486; 70450; 96374; 96375; 96361; 99285; J2060; J2405

== ENCOUNTER 2024-02-01 09:14 | Emergency (ER) | payer MEDICARE ==
[2024-02-01 09:26] VITALS: BP 122/79; TEMP 97.1
[2024-02-01] MEDS: SODIUM CHLORIDE 0.9% 500 ML 500 ML IV ONE (09:47)
--- NOTE | 2024-02-01 09:48 | ED ---
General Adult HPI - General Chief complaint: Chest Pain Stated complaint: AMS Time Seen by Provider: 02/01/24 09:30 Source: patient, EMS, RN notes reviewed, old records reviewed Mode of arrival: EMS Limitations: no limitations - History of Present Illness Initial comments: This is an 88-year-old female who [facility] the emergency department [facility] a [facility] because she was more lethargic at breakfast and had an episode where they thought she was going to pass out. Patient did put her hands on her chest but did not mention any pain but they were concerned so they sent the patient to the emergency department. When EMS arrived she was at her baseline alert and oriented x 1 and she continues to be that way at this time. Patient is unable to give any further history and there is no one with the patient to give any further history at this time. There is no history of any fever nausea vomiting or difficulty breathing - Related Data Home Medications Medication Instructions Recorded Confirmed Ezetimibe [Zetia] 10 mg PO DAILY@79901/17/17 01/11/24 Fenofibrate [Lofibra] 54 mg PO DAILY@79901/17/17 01/11/24 Levothyroxine Sodium 88 mcg PO DAILY@79912/28/20 01/11/24 Diclofenac Sodium [Voltaren 1 applic TOPICAL QID PRN 09/06/23 01/11/24 Arthritis Pain 1% Gel] Multivitamins, Thera [Multivitamin 1 tab PO DAILY@79909/06/23 01/11/24 (formulary)] Venlafaxine HCl ER [Effexor Xr] 37.5 mg PO DAILY@0800 09/06/23 01/11/24 ALPRAZolam [Xanax] 0.25 mg PO BID@0800,1400 11/24/23 01/11/24 Calcium Carbonate/Vitamin D3 1 tab PO DAILY@0811/24/23 01/11/24 [Calcium 600-Vit D3 10 mcg (400 Iu)] Acetaminophen [Tylenol Arthritis] 650 mg PO Q6H PRN 01/11/24 01/11/24 Cholecalciferol [Vitamin D3 (25 50 mcg PO DAILY 01/11/24 01/11/24 Mcg = 1000 Iu)] Cyanocobalamin (Vitamin B-12) 1,000 mcg PO DAILY@79901/11/24 01/11/24 [Vitamin B-12] risperiDONE [RisperDAL M-Tab] 0.5 mg PO BID@0800,199901/11/24 01/11/24 Allergies Allergy/AdvReac Type Severity Reaction Status Date / Time midazolam [From Versed] Allergy Vomiting Verified 02/01/24 09:27 cortisone AdvReac Vomiting Verified 02/01/24 09:27 meperidine [From Demerol] AdvReac Vomiting Verified 02/01/24 09:27 nitrofurantoin AdvReac Unknown Verified 02/01/24 09:27 [From Macrobid] Review of Systems ROS Statement: Those systems with pertinent positive or pertinent negative responses have been documented in the HPI. ROS Other: All systems not noted in ROS Statement are negative. Past Medical History Past Medical History: Dementia, Hypertension, Thyroid Disorder Additional Past Medical History / Comment(s): Pt denies any other medical history at this time. History of Any Multi-Drug Resistant Organisms: None Reported Additional Past Surgical History / Comment(s): eye surgery Past Anesthesia/Blood Transfusion Reactions: No Reported Reaction Past Psychological History: No Psychological Hx Reported Smoking Status: Never smoker Past Alcohol Use History: None Reported Past Drug Use History: None Reported General Exam - General Exam Comments Initial Comments: GENERAL: Patient is well-developed and well-nourished. Patient is nontoxic and well- hydrated and is in no acute distress. ENT: Neck is soft and supple. No significant lymphadenopathy is noted. Oropharynx is clear. Moist mucous membranes. Neck has full range of motion without eliciting any pain. EYES: The sclera were anicteric and conjunctiva were pink and moist. Extraocular movements were intact and pupils were equal round and reactive to light. Eyelids were unremarkable. PULMONARY: Unlabored respirations. Good breath sounds bilaterally. No audible rales rhonchi or wheezing was noted. CARDIOVASCULAR: There is a regular rate and rhythm without any murmurs gallops or rubs. ABDOMEN: Soft and nontender with normal bowel sounds. SKIN: Skin is clear with no lesions or rashes and otherwise unremarkable. NEUROLOGIC: Patient is alert and oriented x 1. Cranial nerves II through XII are grossly intact. Motor and sensory are also intact. Normal speech, volume and content. Symmetrical smile. MUSCULOSKELETAL: Normal extremities with adequate strength and full range of motion. No lower extremity swelling or edema. No calf tenderness. LYMPHATICS: No significant lymphadenopathy is noted PSYCHIATRIC: Normal psychiatric evaluation. Limitations: no limitations Course Vital Signs 02/01/24 02/01/24 09:18 11:40 Temperature 97.1 F L Pulse Rate 73 58 L Respiratory 18 16 Rate Blood Pressure 122/79 122/79 O2 Sat by Pulse 98 100 Oximetry Medical Decision Making - Medical Decision Making EKG is interpreted by myself. EKG shows a sinus rhythm at 64 bpm parables 163 QRS is 90 QT interval 400 QTc is 409. Patient's EKG shows no ST segment elevation or depression. Was pt. sent in by a medical professional or institution ([facility], BEAMING MACHINE OPERATOR, urgent care, hospital, or penitentiary...) When possible be specific @ -[facility] sent the patient into the emergency department Did you speak to anyone other than the patient for history (EMS, parent, family, police, friend...)? What history was obtained from this source @ -No Did you review nursing and triage notes (agree or disagree)? Why? @ -I reviewed and agree with nursing and triage notes Were old charts reviewed (outside hosp., previous admission, EMS record, old EKG, old radiological studies, urgent care reports/EKG's, penitentiary records)? Report findings @ -I compared today's chest x-ray with the prior chest x-ray from another hospital admission and shows no acute abnormality. Differential Diagnosis? @ -Differential Altered Mental Status: Hypoglycemia, DKA, hypercapnia, ETOH, overdose, CO poisoning, trauma, myxedema coma, HTN encephalopathy, infection, encephalitis, psychosis, intercranial hemorrhage, hepatic encephalopathy, meningitis, CVA, this is not meant to be an all-inclusive list EKG interpreted by me (3pts min.). @ -As above X-rays interpreted by me (1pt min.). @ -None done CT interpreted by me (1pt min.). @ -None done U/S interpreted by me (1pt. min.). @ -None done What testing was considered but not performed or refused? (CT, X-rays, U/S, labs)? Why? @ -None What meds were considered but not given or refused? Why? @ -None Did you discuss the management of the patient with other professionals (professionals i.e. , MAR, BEAMING MACHINE OPERATOR, lab, RT, psych nurse, case management social worker, waste oil pumper, teacher, home school liaison officer, case mgr)? Give summary @ -No Was smoking cessation discussed for >3mins.? @ -No Was critical care preformed (if so, how long)? @ -No Were there social determinants of health that impacted care today? How? (Homelessness, low income, unemployed, alcoholism, drug addiction, transportation, low edu. Level, literacy, decrease access to med. care, correction, rehab)? @ -No Was there de-escalation of care discussed even if they declined (Discuss DNR or withdrawal of care, Hospice)? DNR status @ -No What co-morbidities impacted this encounter? (DM, HTN, Smoking, COPD, CAD, Cancer, CVA, ARF, Chemo, Hep., AIDS, mental health diagnosis, sleep apnea, morbid obesity)? @ -None Was patient admitted / discharged? Hospital course, mention meds given and route, prescriptions, significant lab abnormalities, going to OR and other pertinent info. @ -Patient was alert and oriented only to her name which we were told was baseline. Patient was never drowsy never in any distress and all labs and x- rays were normal patient will be discharged back to the penit[facility] Undiagnosed new problem with uncertain prognosis? @ -No Drug Therapy requiring intensive monitoring for toxicity (Heparin, Nitro, Insulin, Cardizem)? @ -No Were any procedures done? @ -No Diagnosis/symptom? @ -Altered mental status Acute, or Chronic, or Acute on Chronic? @ -Acute Uncomplicated (without systemic symptoms) or Complicated (systemic symptoms)? @ -Complicated Side effects of treatment? @ -No Exacerbation, Progression, or Severe Exacerbation? @ -No Poses a threat to life or bodily function? How? (Chest pain, [place], [place], pneumonia, PE, COPD, DKA, ARF, appy, cholecystitis, CVA, Diverticulitis, Homicidal, Suicidal, threat to staff... and all critical care pts) @ -No - Lab Data Result diagrams: 02/01/24 09:45 02/01/24 09:45 Lab Results 02/01/24 02/01/24 02/01/24 Range/Units 09:45 09:45 09:45 WBC 6.3 (3.8-10.6) k/uL RBC 4.14 (3.80-5.40) m/uL Hgb 12.7 (11.4-16.0) gm/dL Hct 39.6 (34.0-46.0) % MCV 95.5 (80.0-100.0) fL MCH 30.7 (25.0-35.0) pg MCHC 32.1 (31.0-37.0) g/dL RDW 13.3 (11.5-15.5) % Plt Count 218 (150-450) k/uL MPV 7.8 Neutrophils % 63 % Lymphocytes % 26 % Monocytes % 6 % Eosinophils % 4 % Basophils % 0 % Neutrophils # 4.0 (1.3-7.7) k/uL Lymphocytes # 1.7 (1.0-4.8) k/uL Monocytes # 0.4 (0-1.0) k/uL Eosinophils # 0.2 (0-0.7) k/uL Basophils # 0.0 (0-0.2) k/uL PT 11.3 (10.0-12.5) sec INR 1.0 (<1.2) APTT 21.0 L (22.0-30.0) sec Sodium 140 (137-145) mmol/L Potassium 3.9 (3.5-5.1) mmol/L Chloride 108 H (98-107) mmol/L Carbon Dioxide 28 (22-30) mmol/L Anion Gap 4 mmol/L BUN 19 H (7-17) mg/dL Creatinine 0.75 (0.52-1.04) mg/dL Est GFR (CKD-EPI)AfAm 84 (>60 ml/min/1.73 sqM) Est GFR (CKD-EPI)NonAf 73 (>60 ml/min/1.73 sqM) Glucose 75 (74-99) mg/dL POC Glucose (mg/dL) (70-110) mg/dL POC Glu Cement Paver ID Calcium 9.1 (8.4-10.2) mg/dL Total Bilirubin 0.4 (0.2-1.3) mg/dL AST 23 (14-36) U/L ALT 11 (4-34) U/L Alkaline Phosphatase 38 (38-126) U/L Troponin I (0.000-0.034) ng/mL Total Protein 5.9 L (6.3-8.2) g/dL Albumin 3.5 (3.5-5.0) g/dL Urine Color Urine Appearance (Clear) Urine pH (5.0-8.0) Ur Specific [place] (1.001-1.035) Urine Protein (Negative) Urine Glucose (UA) (Negative) Urine Ketones (Negative) Urine Blood (Negative) Urine Nitrite (Negative) Urine Bilirubin (Negative) Urine Urobilinogen (<2.0) mg/dL Ur Leukocyte Esterase (Negative) Urine Opiates Screen (NotDetected) Ur Oxycodone Screen (NotDetected) Urine Methadone Screen (NotDetected) Ur Barbiturates Screen (NotDetected) U Tricyclic Antidepress (NotDetected) Ur Phencyclidine Scrn (NotDetected) Ur Amphetamines Screen (NotDetected) U Methamphetamines Scrn (NotDetected) U Benzodiazepines Scrn (NotDetected) Urine Cocaine Screen (NotDetected) U Marijuana (THC) Screen (NotDetected) 02/01/24 02/01/24 02/01/24 Range/Units 09:45 10:11 10:54 WBC (3.8-10.6) k/uL RBC (3.80-5.40) m/uL Hgb (11.4-16.0) gm/dL Hct (34.0-46.0) % MCV (80.0-100.0) fL MCH (25.0-35.0) pg MCHC (31.0-37.0) g/dL RDW (11.5-15.5) % Plt Count (150-450) k/uL MPV Neutrophils % % Lymphocytes % % Monocytes % % Eosinophils % % Basophils % % Neutrophils # (1.3-7.7) k/uL Lymphocytes # (1.0-4.8) k/uL Monocytes # (0-1.0) k/uL Eosinophils # (0-0.7) k/uL Basophils # (0-0.2) k/uL PT (10.0-12.5) sec INR (<1.2) APTT (22.0-30.0) sec Sodium (137-145) mmol/L Potassium (3.5-5.1) mmol/L Chloride (98-107) mmol/L Carbon Dioxide (22-30) mmol/L Anion Gap mmol/L BUN (7-17) mg/dL Creatinine (0.52-1.04) mg/dL Est GFR (CKD-EPI)AfAm (>60 ml/min/1.73 sqM) Est GFR (CKD-EPI)NonAf (>60 ml/min/1.73 sqM) Glucose (74-99) mg/dL POC Glucose (mg/dL) 91 (70-110) mg/dL POC Glu Cement Paver ID Earline Sun Calcium (8.4-10.2) mg/dL Total Bilirubin (0.2-1.3) mg/dL AST (14-36) U/L ALT (4-34) U/L Alkaline Phosphatase (38-126) U/L Troponin I <0.012 (0.000-0.034) ng/mL Total Protein (6.3-8.2) g/dL Albumin (3.5-5.0) g/dL Urine Color Colorless Urine Appearance Clear (Clear) Urine pH 7.0 (5.0-8.0) Ur Specific [place] 1.006 (1.001-1.035) Urine Protein Negative (Negative) Urine Glucose (UA) Negative (Negative) Urine Ketones Negative (Negative) Urine Blood Negative (Negative) Urine Nitrite Negative (Negative) Urine Bilirubin Negative (Negative) Urine Urobilinogen <2.0 (<2.0) mg/dL Ur Leukocyte Esterase Negative (Negative) Urine Opiates Screen Not Detected (NotDetected) Ur Oxycodone Screen Not Detected (NotDetected) Urine Methadone Screen Not Detected (NotDetected) Ur Barbiturates Screen Not Detected (NotDetected) U Tricyclic Antidepress Not Detected (NotDetected) Ur Phencyclidine Scrn Not Detected (NotDetected) Ur Amphetamines Screen Not Detected (NotDetected) U Methamphetamines Scrn Not Detected (NotDetected) U Benzodiazepines Scrn Detected H (NotDetected) Urine Cocaine Screen Not Detected (NotDetected) U Marijuana (THC) Screen Not Detected (NotDetected) Disposition Clinical Impression: Altered mental status Disposition: HOME SELF-CARE Condition: Good Instructions (If sedation given, give patient instructions): Altered Mental Status (ED) Is patient prescribed a controlled substance at d/c from ED?: No Referrals: Jessica Jones [Primary Care Provider] - 1-2 days Time of Disposition: 11:49
[2024-02-01 09:56] LABS: Basophils % (A) 0 %; Eosinophils # (A) 0.2 k/uL (0-0.7); Eosinophils % (A) 4 %; HCT 39.6 % (34.0-46.0); HGB 12.7 gm/dL (11.4-16.0); Lymphocytes # (A) 1.7 k/uL (1.0-4.8); Lymphocytes % (A) 26 %; MCH 30.7 pg (25.0-35.0); MCHC 32.1 g/dL (31.0-37.0); MCV 95.5 fL (80.0-100.0); Mean Platelet Volume 7.8; Monocytes # (A) 0.4 k/uL (0-1.0); Monocytes % (A) 6 %; Neutrophils % (A) 63 %; Platelet Count 218 k/uL (150-450); RBC 4.14 m/uL (3.80-5.40); RDW 13.3 % (11.5-15.5); WBC 6.3 k/uL (3.8-10.6)
[2024-02-01 10:07] LABS: ALT 11 U/L (4-34); AST 23 U/L (14-36); African American GFR (CKD) 84 (>60 ml/min/1.73 sqM); Albumin 3.5 g/dL (3.5-5.0); Alkaline Phosphatase 38 U/L (38-126); Anion Gap 4 mmol/L; Blood Urea Nitrogen 19 mg/dL (7-17); Calcium 9.1 mg/dL (8.4-10.2); Carbon Dioxide 28 mmol/L (22-30); Chloride 108 mmol/L (98-107); Glucose 75 mg/dL (74-99); Non-African American GFR(CKD) 73 (>60 ml/min/1.73 sqM); Potassium 3.9 mmol/L (3.5-5.1); Sodium 140 mmol/L (137-145); Total Bilirubin 0.4 mg/dL (0.2-1.3); Total Protein 5.9 g/dL (6.3-8.2)
[2024-02-01 10:11] LABS: Prothrombin Time 11.3 sec (10.0-12.5)
[2024-02-01 10:13] LABS: Glucose,Whole Blood 91 mg/dL (70-110)
--- NOTE | 2024-02-01 10:43 | XR ---
EXAMINATION TYPE: XR chest 2V DATE OF EXAM: 02/01/2024 COMPARISON: 01/11/2024 HISTORY: 88-year-old female confusion, altered mental status TECHNIQUE: AP and lateral views FINDINGS: The heart is upper limits of normal in size. Aorta and pulmonary vasculature within normal limits. No consolidation or pleural effusion. IMPRESSION: Borderline heart size. No acute process seen.
[2024-02-01 11:15] LABS: Appearance,Urine Clear (Clear); Bilirubin,Urine Negative (Negative); Blood,Urine Negative (Negative); Color,Urine Colorless; Glucose,Urine (UA) Negative (Negative); Ketones,Urine Negative (Negative); Leukocyte Esterase,Urine Negative (Negative); Nitrite,Urine Negative (Negative); Protein,Urine Negative (Negative); Specific Gravity,Urine 1.006 (1.001-1.035); Urobilinogen,Urine <2.0 mg/dL (<2.0)
[2024-02-01 11:35] LABS: Amphetamine Screen,Urine Not Detected (NotDetected); Barbiturate Screen,Urine Not Detected (NotDetected); Benzodiazepines Screen,Urine Detected (NotDetected); Cocaine Screen,Urine Not Detected (NotDetected); Methadone Screen, Urine Not Detected (NotDetected); Opiate Screen,Urine Not Detected (NotDetected); Oxycodone Screen, Urine Not Detected (NotDetected); Phencyclidine Screen,Urine Not Detected (NotDetected); Tricyclic Antidepressant,Urine Not Detected (NotDetected); Urn Cannabinoid Scrn Not Detected (NotDetected)
[2024-02-01 11:41] VITALS: PULSE 58; RESP 16
[2024-02-01] MEDS: LORazepam 2 MG/ML INJ IM STA (12:42)
== END 2024-02-01 12:50 | disposition home or self-care (01) ==
LOC: EC 09:14
DX: R41.82 Altered mental status, unspecified (principal); Z88.1 Allergy status to other antibiotic agents; Z88.5 Allergy status to narcotic agent
CPT/HCPCS: 36415; 93005; 80053; 84484; 85025; 85610; 85730; 81003; 80306; 71046; 99285; 96360; 96372; J2060